=== PATIENT | female | born 1965 | race Caucasian/White ===

== ENCOUNTER 2020-06-28 10:28 | Emergency (ER) | payer OTHER, SELFPAY ==
[2020-06-28 11:11] VITALS: BP 176/84; PULSE 93; RESP 16; O2SAT 98; BMI 27.9
--- NOTE | 2020-06-28 11:24 | ED.BACK ---
HPI - Back Pain/Injury General Chief Complaint: Back Pain/Injury Stated Complaint: r side lower back pain Time Seen by Provider: 06/28/20 11:24 Source: patient Mode of arrival: ambulatory Limitations: no limitations History of Present Illness MD elicited complaint: back pain Pertinent past history: prior back pain Onset (ago): day(s) Timing: intermittent Severity: moderate Similar Symptoms Previously: Yes Quality: aching Location: lumbar spine Radiation: right upper leg Exacerbating factors: movement Relieving factors: immobilization Associated symptoms: denies other symptoms Treatments prior to arrival: cold therapy Work related injury: No Related Data Previous Rx's Medication Instructions Recorded diclofenac potassium 50 mg tablet 50 mg PO BID PRN 30 Days #60 tab 06/05/20 cyclobenzaprine 10 mg tablet 10 mg PO ONCE PRN 90 Days #90 tab 06/09/20 meloxicam 15 mg tablet 15 mg PO DAILY 30 Days #30 tab 06/20/20 clonazepam 1 mg tablet 1 mg PO BID PRN 30 Days #60 tab 06/28/20 lidocaine 1 patch TOPICAL Q24H PRN #10 ea 06/28/20 methylprednisolone [Medrol] 4 mg PO DAILY #10 tab 06/28/20 Allergies Allergy/AdvReac Type Severity Reaction Status Date / Time codeine [CODEINE] Allergy Unknown NAUSEA Unverified 05/18/20 14:51 Review of Systems Review of Systems: Constitutional: No Weight loss, No Fever, No Chills, No Night Sweats, No Fatigue, No Malaise ENT/Mouth: No Hearing loss, No Ear Pain, No Nasal Congestion, No Sinus Pain, No Hoarseness, No sore throat, No Rhinorrhea, No Swallowing Difficulty Eyes: No Eye Pain, No Swelling, No Redness, No Foreign Body, No Discharge, No Vision Changes Cardiovascular: No Chest Pain, No SOB, No Dyspnea on Exertion, No Orthopnea, No Edema, No Palpitations Respiratory: No Cough, No Sputum, No Wheezing, No Smoke Exposure, No Dyspnea Gastrointestinal: No Nausea, No Vomiting, No Diarrhea, No Constipation, No abdominal Pain, No Hematochezia, No Melena Genitourinary: no irregular bleeding, No Dysuria, No Urinary Frequency, No Hematuria, No Urinary Incontinence, No Urgency, No Flank Pain, No Urinary Flow Changes, No Hesitancy Musculoskeletal: No joint pain, No Myalgias, No Joint Swelling Skin: No Skin Lesions, No rash Neuro: No Weakness, No Numbness, No Paresthesias, No Loss of Consciousness, No Dizziness, No Headache Psych: No Anxiety/Panic, No Depression, No SI/HI/AH/VH, No Social Issues Heme/Lymph: No Bruising, No Bleeding,No Lymphadenopathy Endocrine: No Polyuria, No Polydipsia, No Temperature Intolerance Yes all other systems are reviewed and are negative [facility] Past Medical History Attestation statement: The following information was validated with the patient. Medical History (Updated 06/29/20 @ 00:01 by Griselda Hanna) Ankle fracture Anxiety Depression Femur fracture Onychia of toe Radiculopathy Social History Social History Smoking Status: Current every day smoker Use of substances other than those prescribed or required for medical reasons: No Advance Directives: Yes Advance Directives Information Provided: No Advance Directives on File: No Physical Exam Vital Signs: Vital Signs: Vital Signs Pulse Resp BP Pulse Ox 06/28/20 11:11 93 16 176/84 H 98 Body Mass Index 27.9 Reviewed Const: General: cooperative and healthy appearing; No acute distress or intoxicated appearing Nutritional Appearance: average body habitus Orientation/consciousness: patient oriented x3 HENMT: Head: Yes normal to inspection Ears: hearing grossly normal bilaterally Eyes: General: appearance normal, both eyes and all related structures Visual Mott: normal visual mott by confrontation Neck: Neck: Yes normal visual inspection and No tender Thyroid: Thyroid normal Chest: Chest palpation & inspection: normal inspection of the chest Resp: Effort & Inspection: normal respiratory effort Cardio: Jugular venous distension: no JVD GI: Inspection: Yes normal to inspection Percussion: Yes normal to percussion Auscultation: normal bowel sounds : General: Yes no CVA tenderness Back/Spine/Pelvis: Back: no CVA tenderness Back/spine/pelvis image: 1. slight soft tissue to palpation. No rash, erythema, induration. No midline to palpation. No step-off. No obvious deformity. Negative leg lift. Reflexes within normal limits. Skin: General skin exam: no rashes or lesions noted Neuro: General: patient oriented x3 Extrem: General: Yes normal to inspection MDM - Back Pain/Injury MDM Narrative Medical decision making narrative: Feels much better after IM Toradol ambulatory status with gait. No low back pain red flags. X-ray finding show mild lesion disc changes at L5/S1 disc level no visible acute fracture. No dislocation or subluxation. Findings reviewed will follow-up primary care doctor. Differential Diagnosis Differential diagnosis: Likely lumbar radiculopathy, sciatica and strain of lumbar region; Unlikely renal colic, pyelonephritis, thoracic back pain, AAA and discitis Medical Records Attestation: I reviewed the patient's medical records. Lab Data Attestation: I reviewed the patient's lab results. Labs: Lab Results 06/28/20 Range/Units 11:57 Urine Color YELLOW Urine Appearance CLEAR Urine pH 5.5 (5.0-8.0) Ur Specific Gould 1.010 (1.005-1.025) Urine Protein NEG (NEG-TRACE) MG/DL Urine Glucose (UA) 100 H (NEG) MG/DL Urine Ketones NEG (NEG) MG/DL Urine Blood NEG (NEG) Urine Nitrite NEG (NEG) Ur Leukocyte Esterase NEG (NEG) Imaging Data Lumbar spine x-ray: Radiologist's impression: [place] [id number] XRay Report Signed Patient: Shannen Costa [facility]#: [id number] : 1965Acct:[id number] Age/Sex: 54 / FADM Date: 06/28/20 Loc: HO.ED Attending Dr: Ordering Physician: Tyrese Brush NP Date of Service: 06/28/20 Procedure(s): XR lumbar spine 2-3V Accession Number(s): [id number] cc: Tyrese Brush NP~ EXAMINATION: XR LUMBOSACRAL SPINE CLINICAL INFORMATION: Low back pain. COMPARISON: None TECHNIQUE: Three views of the lumbosacral spine. FINDINGS: There is normal lumbar lordosis. The vertebral and alignment is normal. There is loss of L5-S1 disc height. Rest the disc heights are normal. There is no visible acute fracture, dislocation or lytic process. The soft tissues are normal. XR/XR lumbar spine 2-3V IMPRESSION: Mild lesion disc changes L5-S1 disc level. No visible acute fracture, dislocation or subluxation. Dictated By:ARIELLE FRIED MD Signed By:<Electronically signed by ARIELLE FRIED MD in OV>06/28/20 1217 DD/ 1126 TD/TT: Trail Maintenance Worker: TERRENCE Discharge Plan Discharge Clinical Impression: Strain of lumbar region, Sciatica Patient Disposition: Home, Self-Care Prescriptions: New methylprednisolone [Medrol] 4 mg tablet 4 mg PO DAILY Qty: 10 RF: 0 lidocaine 4 % adhesive patch,medicated 1 patch topical Q24H PRN (Reason: pain) Qty: 10 RF: 0 No Action diclofenac potassium 50 mg tablet 50 mg PO BID PRN (Reason: pain) 30 Days Qty: 60 RF: 0 cyclobenzaprine 10 mg tablet 10 mg PO ONCE PRN (Reason: muscle spasm) 90 Days Qty: 90 RF: 0 meloxicam 15 mg tablet 15 mg PO DAILY 30 Days Qty: 30 RF: 0 clonazepam 1 mg tablet 1 mg PO BID PRN (Reason: anxiety) 30 Days Qty: 60 RF: 0 Referrals: Vu Sanchez, ENVIRONMENTAL COMPLIANCE OFFICER-BC [Primary Care Provider] - 1 week Interventions: ED Discharge Assessment Last Done: 06/28/20 12:41 Discharge Date/Time: 06/28/20 12:49
[2020-06-28] MEDS: Ketorolac Tromethamine 30 MG/ML VIAL IM (11:47)
[2020-06-28 12:05] LABS: Glucose Urine UA 100 MG/DL (NEG); Leukocyte Esterase Urine NEG (NEG); Nitrite Urine NEG (NEG); PH 5.5 (5.0-8.0); Urine Blood NEG (NEG); Urine Ketones NEG (NEG); Urine Protein NEG (NEG-TRACE)
[2020-06-28 12:13] LABS: Color Urine YELLOW
[2020-06-28 12:15] LABS: Appearance Urine CLEAR
== END 2020-06-28 12:49 | disposition home or self-care (01) ==
PROVIDERS: Nurse Practitioner Primary Care; Emergency Provider Emergency Medicine; PCP Nurse Practitioner Family
DX: S39.012A Strain of muscle, fascia and tendon of lower back, initial encounter (principal); M54.42 Lumbago with sciatica, left side; M54.41 Lumbago with sciatica, right side; M54.6 Pain in thoracic spine; X58.XXXA Exposure to other specified factors, initial encounter; Y93.9 Activity, unspecified; Y92.9 Unspecified place or not applicable; Y99.9 Unspecified external cause status; F17.200 Nicotine dependence, unspecified, uncomplicated; Z71.6 Tobacco abuse counseling
CPT/HCPCS: 72100; 81003; 96372; 99283; 99284; J1885

== ENCOUNTER 2020-07-12 17:05 | Outpatient (REF) | payer OTHER, SELFPAY ==
--- NOTE | 2020-07-12 | MM_ITS ---
EXAMINATION: MM SCREENING DIGITAL BREAST TOMOSYNTHESIS, BILATERAL CLINICAL INFORMATION: Screening. Asymptomatic. The lifetime risk of breast cancer based on the Tyrer-Cuzick Model is 5%. COMPARISON: Mammography: 10/23/2016 (baseline) TECHNIQUE: Digital breast tomosynthesis is performed in both the craniocaudal and mediolateral oblique views along with computer-aided detection (CAD). Synthesized 2D images are generated from the tomosynthesis. FINDINGS: There are scattered areas of fibroglandular density (ACR BI-RADS breast composition Category b). There are no significant masses, abnormal calcifications, or other abnormalities. Parenchymal pattern is similar to baseline exam. The axilla and skin contours are unremarkable. MM/MM tomosynthesis screening BI IMPRESSION: No mammographic evidence of malignancy. ASSESSMENT: BI-RADS 1: Negative RECOMMENDATION: Routine annual mammography screening. This patient's information was entered into a reminder system with a target due date for their next mammogram.
== END 2020-07-12 17:06 | disposition home or self-care (01) ==
LOC: HO.MAMMO 17:05
PROVIDERS: PCP Nurse Practitioner Family; Visit Provider Nurse Practitioner Family
DX: Z12.31 Encounter for screening mammogram for malignant neoplasm of breast (principal)
CPT/HCPCS: 20610; 77063; 77067; 99212

== ENCOUNTER 2020-07-31 11:39 | Outpatient (REF) | payer OTHER, SELFPAY | END 2020-07-31 11:40 | disposition home or self-care (01) | LOC: HO.LAB 11:39 | PROVIDERS: Visit Provider Internal Medicine | DX: Z20.828 Contact with and (suspected) exposure to other viral communicable diseases (principal) | CPT/HCPCS: C9803; U0003 ==

== ENCOUNTER 2020-09-15 09:55 | Outpatient (REF) | payer OTHER, SELFPAY ==
--- NOTE | 2020-09-15 10:02 | XR_ITS ---
EXAMINATION: XR BILATERAL KNEES STANDING XR BILATERAL KNEES CLINICAL INFORMATION: Patellofemoral disorder. Pain. COMPARISON: None TECHNIQUE: AP bilateral knees standing. 2 views each knee. FINDINGS: AP BILATERAL KNEES: There is reduction in the medial and lateral compartment joint spaces of both knees with mild lateral patellar right knee spurring. No loose bodies seen. There is a small radiopaque density seen along the lateral femoral cortex right knee. LEFT KNEE: There is no visible fracture, dislocation. The patellofemoral compartment joint spaces maintained. There are no loose bodies. RIGHT KNEE: There is moderate suprapatellar joint effusion with a small anterosuperior patellar enthesophyte. No loose bodies seen. No bony erosive changes. XR/XR knee RT 2V IMPRESSION: Bilateral mild degenerative changes medial and lateral compartments both knees. There is mild to moderate right knee suprapatellar joint effusion but no loose bodies seen. Lateral view left knee is unremarkable.
--- NOTE | 2020-09-15 10:02 | XR_ITS ---
EXAMINATION: XR BILATERAL KNEES STANDING XR BILATERAL KNEES CLINICAL INFORMATION: Patellofemoral disorder. Pain. COMPARISON: None TECHNIQUE: AP bilateral knees standing. 2 views each knee. FINDINGS: AP BILATERAL KNEES: There is reduction in the medial and lateral compartment joint spaces of both knees with mild lateral patellar right knee spurring. No loose bodies seen. There is a small radiopaque density seen along the lateral femoral cortex right knee. LEFT KNEE: There is no visible fracture, dislocation. The patellofemoral compartment joint spaces maintained. There are no loose bodies. RIGHT KNEE: There is moderate suprapatellar joint effusion with a small anterosuperior patellar enthesophyte. No loose bodies seen. No bony erosive changes. XR/XR knee LT 2V IMPRESSION: Bilateral mild degenerative changes medial and lateral compartments both knees. There is mild to moderate right knee suprapatellar joint effusion but no loose bodies seen. Lateral view left knee is unremarkable.
--- NOTE | 2020-09-15 10:02 | XR_ITS ---
EXAMINATION: XR BILATERAL KNEES STANDING XR BILATERAL KNEES CLINICAL INFORMATION: Patellofemoral disorder. Pain. COMPARISON: None TECHNIQUE: AP bilateral knees standing. 2 views each knee. FINDINGS: AP BILATERAL KNEES: There is reduction in the medial and lateral compartment joint spaces of both knees with mild lateral patellar right knee spurring. No loose bodies seen. There is a small radiopaque density seen along the lateral femoral cortex right knee. LEFT KNEE: There is no visible fracture, dislocation. The patellofemoral compartment joint spaces maintained. There are no loose bodies. RIGHT KNEE: There is moderate suprapatellar joint effusion with a small anterosuperior patellar enthesophyte. No loose bodies seen. No bony erosive changes. XR/XR knee standing BI IMPRESSION: Bilateral mild degenerative changes medial and lateral compartments both knees. There is mild to moderate right knee suprapatellar joint effusion but no loose bodies seen. Lateral view left knee is unremarkable.
== END 2020-09-15 09:56 | disposition home or self-care (01) ==
LOC: HO.XRAY 09:55
PROVIDERS: PCP Nurse Practitioner Family; Visit Provider Physician Assistant
DX: M22.2X9 Patellofemoral disorders, unspecified knee (principal); M25.569 Pain in unspecified knee; M25.461 Effusion, right knee
CPT/HCPCS: 20610; 73560; 73565; 99212

== ENCOUNTER 2020-09-15 11:40 | Outpatient (REF) | payer OTHER, SELFPAY | END 2020-09-15 11:41 | disposition home or self-care (01) | LOC: HO.LAB 11:40 | PROVIDERS: Visit Provider Physician Assistant | DX: M25.461 Effusion, right knee (principal) | CPT/HCPCS: 87071; 87073; 87205; 89060; J1040 ==

== ENCOUNTER 2021-04-20 11:06 | Day surgery (SDC) | payer OTHER, SELFPAY ==
[2021-04-12 14:43] VITALS: BMI 27.1
--- NOTE | 2021-04-19 09:20 | HO.ANESPROP2 ---
Documented by User: Nata Cm NP 04/19/21 09:21 HPI - Anesthesia Eval Consult details Narrative: 55yo F for Upper Endoscopy and Colonoscopy [facility] Active Problems Active Problems: All Active Problems (Updated 11/20/20 @ 11:47 by KYUNG Mccarthy) Effusion, right knee (Acute) HTN (hypertension) (Acute) Hand dermatitis (Acute) Xanthelasma (Acute) Puncture wound, hand (Acute) Depression (Acute) Anxiety (Acute) Patella-femoral syndrome (Acute) Radiculopathy (Acute) Past Medical History Medical History Ankle fracture Anxiety Depression Femur fracture Onychia of toe Radiculopathy Surgical History Surgical History History of ankle surgery Social History Social History Patient Tobacco Use Status: Current everyday Tobacco user Cigarette Packs Per Day: 1 Cigarettes Per Day: 10 Use of substances other than those prescribed or required for medical reasons: No Are you DNR?: No Advance Directives: No Advance Directives Information Provided: No Advance Directives on File: No 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 Allergies Allergy/AdvReac Type Severity Reaction Status Date / Time codeine [CODEINE] Allergy Unknown NAUSEA Verified 11/20/20 11:45 Exam Exam Date and Time: April 19, 2021 0920 Height,Weight and Vital Signs: Height 5 ft 4 in Weight 71.668 kg Assessment and Plan Assessment Anesthesia Assessment: Chart Reviewed Documented by User: Brianne Fishman MD 04/20/21 12:42 [facility] Past Medical History Medical History Ankle fracture Anxiety Depression Femur fracture Onychia of toe Radiculopathy Family History Family history of problems with anesthesia: No Surgical History Surgical History History of ankle surgery History of Problems with Anesthesia: No Social History Social History Patient Tobacco Use Status: Current everyday Tobacco user Cigarette Packs Per Day: 1 Cigarettes Per Day: 10 Use of substances other than those prescribed or required for medical reasons: No Are you DNR?: No Advance Directives: No Advance Directives Information Provided: No Advance Directives on File: No 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 Allergies Allergy/AdvReac Type Severity Reaction Status Date / Time codeine [CODEINE] Allergy Unknown NAUSEA Verified 11/20/20 11:45 Exam Airway Mallampati Class: II TM Dist: >3cm Neck ROM: Full Heart: rrr Lungs: cta Assessment and Plan Assessment Anesthesia Assessment: Anesthesia Plan Discussed and Chart Reviewed Final Anesthetic Review Family History of Problems with Anesthesia: No History of Problems with Anesthesia: No NPO: Yes ASA Class: II Final Preanesthetic Review: No Changes in Pt Med Stat and Consent Obtained/Reviewed Patient Risk: Intermediate Procedure Risk: Intermediate Anesthetic Plan Anesthetic Plan: MAC: Disposition: Standard PACU
[2021-04-20 11:37] VITALS: BP 142/83; PULSE 88; RESP 16; TEMP 36.4; O2SAT 96
[2021-04-20] MEDS: Lactated Ringers 1,000 ML 100 ML IVCONT (11:42)
[2021-04-20 14:02] VITALS: BP 133/70; PULSE 71; RESP 16; TEMP 36.1; O2SAT 97
[2021-04-20] MEDS: ondansetron HCL 4 MG/2 ML VIAL IVPUSH (14:07)
--- NOTE | 2021-04-20 14:09 | PM.OP ---
Brief Operative Note Date of Service: 04/20/21 Pre-op diagnosis: Manzo's esophagus, Rectal bleeding Post-op diagnosis: other (Hiatal hernia, R/O gastric polyp, diverticulosis) Procedure: EGD with biopsies, Colonoscopy to the cecum Surgeon: Yash Jefferson Anesthesia: MAC Was an Instrumentation Engineer used for this Procedure?: No Estimated blood loss (mL): 3.0 Pathology: other (A. EG Junction at 35cm B. Gastric body) Condition: stable Disposition: PACU
[2021-04-20 14:17] VITALS: PULSE 65; RESP 18
[2021-04-20 14:33] VITALS: BP 142/67; PULSE 72; RESP 18; O2SAT 98
--- NOTE | 2021-04-20 23:21 | OP_ITS ---
SURGEON: Yash Jefferson MD INDICATIONS: The patient presents for evaluation of gastroesophageal reflux, Manzo esophagus, and hematochezia. Full consent has been obtained from her for both procedures, including risks of bleeding and perforation. PREOPERATIVE DIAGNOSIS: Manzo esophagus and hematochezia. POSTOPERATIVE DIAGNOSIS: Manzo esophagus and hematochezia, hiatal hernia. Rule out gastric polyp, diverticulosis, and internal hemorrhoids. PROCEDURE PERFORMED: Esophagogastroduodenoscopy with biopsies and colonoscopy to the cecum. ESTIMATED BLOOD LOSS: COMPLICATIONS: ANESTHESIA: Preop medication used, monitored anesthesia care. ASSISTANTS: SPECIMENS: DESCRIPTION OF PROCEDURE: The patient was placed in the left lateral decubitus position. An Olympus video gastroscope was passed in the posterior oropharynx and upper esophagus under direct vision. The scope was passed slowly into the distal esophagus. The gastroesophageal junction appeared at 35 cm. This area was notable for some slight irregularity and some changes consistent with Manzo mucosa. There was no evidence of any esophagitis nor any lesions. The scope entered into the stomach. There was a [id number]-[id number]-sized hiatal hernia. The scope was advanced to the pylorus and the duodenum was cannulated to the descending portion. The duodenum including the bulb appeared normal without mass or ulceration. The scope was withdrawn back to the stomach, the gastric antrum appeared normal. The scope was retroflexed visualizing the proximal stomach carefully, which appeared normal, without any sign of mass or ulceration. The scope was straightened. Along the greater curvature in the body of the stomach was a whitish area approximately 5 x 12 mm in diameter, which was different than the surrounding mucosa. Multiple biopsies were obtained from it. The remainder of the stomach appeared normal. The scope was withdrawn back to the esophagus. I obtained multiple biopsies at 35 cm in the area of probable Manzo mucosa. Proximal to that, the esophageal mucosa appeared normal. The scope was withdrawn from the patient. She was turned around for the colonoscopy. The digital rectal exam revealed no abnormalities. An Olympus video pediatric colonoscope was entered into the rectum and advanced easily to the cecum. Once in the cecum, I did identify normal-appearing cecal pouch with appendiceal orifice and a normal-appearing ileocecal valve. There was transillumination of light deep in the right lower quadrant. The entire cecum and the ileocecal valve appeared normal. Scope was slowly withdrawn assessing all mucosal surfaces carefully. Preparation was excellent. I did not visualize any sign of polyps, colitis, nor angiodysplasia. There was a moderate amount of sigmoid diverticulosis. In the rectum, scope was retroflexed visualizing internal hemorrhoids, but no other pathology. The rectal mucosa appeared normal. The scope was straightened out and withdrawn from the patient. She tolerated both procedures well and was returned to the recovery area in stable condition. IMPRESSION: 1. Hiatal hernia, history of Manzo esophagus. 2. Rule out gastric polyp. 3. Diverticulosis. 4. Internal hemorrhoids. PLAN: The results of biopsies will be checked. If there is no dysplasia in the Manzo esophagus, I would recommend a repeat upper endoscopy in 3 years. Given today's negative colonoscopy and a negative colonoscopy in 2018 and no family history of first-degree relatives with colon cancer, I would recommend a repeat colonoscopy in 10 years. She will otherwise see me on a p.r.n. basis. MD VALENTE Kirk/URSZULA / [phone]
== END 2021-04-20 15:12 | disposition home or self-care (01) ==
PROVIDERS: PCP Nurse Practitioner Family; Visit Provider Internal Medicine
PROC: (CPT 45378; principal; 2021-04-20 12:30)
DX: K62.5 Hemorrhage of anus and rectum (principal); K57.30 Diverticulosis of large intestine without perforation or abscess without bleeding; K64.8 Other hemorrhoids; K21.9 Gastro-esophageal reflux disease without esophagitis; K22.70 Barrett's esophagus without dysplasia; K44.9 Diaphragmatic hernia without obstruction or gangrene; I10 Essential (primary) hypertension; Z79.899 Other long term (current) drug therapy; F17.210 Nicotine dependence, cigarettes, uncomplicated
CPT/HCPCS: 45378; 43239; 88305; 88342; J2405

== ENCOUNTER 2021-07-17 13:34 | Outpatient (REF) | payer OTHER, SELFPAY ==
--- NOTE | ~2021-07-17 | XR_ITS ---
EXAMINATION: XR SHOULDER, RIGHT CLINICAL INFORMATION: Pain COMPARISON: None TECHNIQUE: Three views of the right shoulder. FINDINGS: Bone alignment is normal. No fracture or dislocation is seen. The glenohumeral joint is normal. There is arthritis at the acromioclavicular joint. Soft tissues are normal. XR/XR shoulder RT min 2V IMPRESSION: Arthritis at the acromioclavicular joint.
--- NOTE | ~2021-07-17 | XR_ITS ---
EXAMINATION: XR CHEST CLINICAL INFORMATION: R05.9 - Cough, unspecified COMPARISON: Chest radiographs 11/19/2019, 04/20/2019 TECHNIQUE: 2 views of the chest were obtained. FINDINGS: There is subtle airspace opacity right suprahilar region may be related to early pneumonia. There is coarsening of the bronchiolar markings. There is questionable groundglass opacity right infrahilar region. The costophrenic sulci are clear. The vascularity is normal. The heart is normal in size. The hilar contours are normal. No acute bony abnormality. XR/XR chest 2V IMPRESSION: Subtle airspace opacity right suprahilar region with mild bilateral bronchiolar wall thickening. Questionable groundglass opacity right infrahilar region. No effusion.
== END 2021-07-17 13:35 | disposition home or self-care (01) ==
LOC: HO.HMGCX 13:34
PROVIDERS: PCP Nurse Practitioner Family; Visit Provider Internal Medicine
DX: R05.9 Cough, unspecified (principal); M25.511 Pain in right shoulder
CPT/HCPCS: 71046; 73030

== ENCOUNTER 2021-08-10 13:28 | Outpatient (REF) | payer OTHER, SELFPAY ==
--- NOTE | ~2021-08-10 | CT_ITS ---
EXAMINATION: CT CHEST SCREENING CLINICAL INFORMATION: Nicotine dependence. COMPARISON: Chest 07/17/2021. TECHNIQUE: Multidetector volumetric CT imaging of the chest is performed without contrast using low dose technique. Additional 2D coronal and sagittal reformatted images and axial 3D maximum intensity projection (MIP) images are generated on the CT workstation. This CT examination was performed using dose optimization techniques as appropriate, variously including the following: *Automated exposure control *Adjustment of mA and/or kV according to patient size (this includes techniques or standardized protocols for targeted exams where dose is matched to indication/reason for exam; i.e. extremities or head) *Use of iterative reconstruction technique DLP: 237 mGy-cm FINDINGS: LUNGS: There is centrilobular emphysema with 1 cm ground-glass attenuation right upper lobe adjacent to major fissure. In addition, there is scattered ground-glass attenuation seen in both lungs. There is subpleural linear densities in both upper lobes, lingula and patchy ill-defined ground-glass attenuation in upper and lower lobes. There is no bronchiectasis or peribronchial wall thickening. Groundglass attenuation No acute consolidation seen. MEDIASTINUM: The thyroid lobes are symmetrical and normal. The central trachea and the bronchi are widely patent. No abnormal mediastinal lymph nodes or masses seen. Heart size and the great vessels are normal caliber. There are small shotty lymph nodes in the pretracheal, para-aortic and subcarinal space with a short axis measurement of 7 mm and less in pretracheal space. PLEURA: There is no pleural effusion. No pleural mass or thickening. AXILLA: No lymphadenopathy. UPPER ABDOMEN: Visualized liver, spleen, pancreas and adrenal glands are unremarkable. OSSEOUS STRUCTURES: No lytic or sclerotic process seen. There is mild ventral spondylosis upper dorsal spine. CT/CT lung screening IMPRESSION: Emphysema with scattered linear atelectasis and ill-defined scattered ground-glass attenuation in both upper lobes and lingula and dependent ground-glass attenuation in both lower lobes, likely atelectasis. Measurable ground-glass attenuation in the right upper lobe is 1 cm. These above findings are suggestive of chronic lung parenchymal changes. No definite lymph nodes seen. ASSESSMENT: Lung-RADS category 2: Benign. RECOMMENDATION: Low-dose annual CT chest.
== END 2021-08-10 13:29 | disposition home or self-care (01) ==
LOC: HO.CT 13:28
PROVIDERS: PCP Nurse Practitioner Family; Visit Provider Physician Assistant Medical
DX: Z12.2 Encounter for screening for malignant neoplasm of respiratory organs (principal); F17.210 Nicotine dependence, cigarettes, uncomplicated
CPT/HCPCS: 71271; G0296

== ENCOUNTER 2021-08-27 11:09 | Outpatient (REF) | payer OTHER, SELFPAY | END 2021-08-27 11:10 | disposition home or self-care (01) | LOC: HO.HMGCLDS 11:09 | PROVIDERS: Visit Provider Internal Medicine | DX: Z20.822 Contact with and (suspected) exposure to COVID-19 (principal) | CPT/HCPCS: C9803; U0003; U0005 ==

== ENCOUNTER 2021-09-04 09:37 | Outpatient (REF) | payer OTHER, SELFPAY ==
[2021-09-04 11:33] LABS: Basophils Absolute Auto 0.1 X10*3/uL (0.0-0.2); Eosinophils Absolute Auto 0.1 X10*3/uL (0.0-0.4); Eosinophils Percent Auto 0.8 % (0-4); Hematocrit 41.7 % (37.0-47.0); Hemoglobin 14.1 g/dl (12.0-16.0); Imm Gran Abs Auto 0.06 X10*3/uL (0.00-0.03); Imm Gran Pct Auto 0.6 % (0.0-0.4); Lymphocytes Percent Auto 18.8 % (20-40); MANUAL DIFF FLAG NO; Mean Corpuscular HGB Conc 33.8 g/dl (31.0-35.0); Mean Corpuscular Hemoglobin 29.1 pg (27.0-33.0); Mean Corpuscular Volume 86.2 fL (80.0-98.0); Mean Platelet Volume 10.3 fL (9.4-12.3); Monocytes Absolute Auto 0.8 X10*3/uL (0.1-1.2); Monocytes Percent Auto 7.4 % (2-11); Neutrophils Absolute Auto 7.6 x10*3/uL (2.0-8.3); Neutrophils Percent Auto 71.4 % (45-73); Platelet Count 318 X10*3/uL (160-400); Red Blood Count 4.84 X10*6/uL (4.20-5.50); Red Cell Distribution Width 14.5 % (11.0-16.0); White Blood Count 10.6 X10*3/uL (4.8-10.8)
[2021-09-04 11:44] LABS: INTERNATIONAL NORM RATIO 0.9 (0.9-1.1)
[2021-09-04 11:47] LABS: Partial Thromboplastin Time 34.1 SEC (24.1-38.0)
[2021-09-04 12:02] LABS: Alanine Aminotransferase 47 U/L (0-31); Albumin Level 4.4 g/dL (3.5-5.0); Alkaline Phosphatase 114 U/L (39-117); Anion Gap 13 (12-20); Aspartate Amino Transferase 24 U/L (5-31); Bilirubin Total 0.3 mg/dL (0.0-1.0); Blood Urea Nitrogen 21 mg/dL (9-16); Calcium 9.8 mg/dL (8.4-10.2); Carbon Dioxide 27 mmol/L (22-29); Chloride 102 mmol/L (96-108); Cholesterol 364 mg/dL; Estimated Glomerular Filt Rate > 60; Glucose Fasting 179 mg/dL (60-99); HDL Cholesterol 42 mg/dL; Potassium 4.9 mmol/L (3.3-5.1); Sodium 137 mmol/L (135-145); Total Protein 7.1 g/dL (6.5-8.0); Triglycerides 436 mg/dL; Uric Acid 5.4 mg/dL (2.4-5.7)
[2021-09-04 12:06] LABS: Appearance Urine CLEAR; Color Urine YELLOW; Glucose Urine UA NEG (NEG); Leukocyte Esterase Urine NEG (NEG); Nitrite Urine NEG (NEG); Urine Blood NEG (NEG); Urine Ketones NEG (NEG); Urine Protein NEG (NEG-TRACE)
[2021-09-04 12:26] LABS: TSH reflex Free T4 0.46 uIU/mL (0.32-4.0); ~Hepatitis B Surface Antibody NONREACTIVE (Nonreactive)
[2021-09-04 12:29] LABS: HBsAGNum1 0.27 S/CO (0.00-0.99); Hepatitis B Core Antibody Nonreactive (Nonreactive); Hepatitis B Surface Antigen Negative (Negative); ~HepC Num1 0.08 S/CO (0.00-0.79); ~Hepatitis C Antibody Nonreactive (Nonreactive)
[2021-09-05 04:22] LABS: Hepatitis A Antibody IgM 0.17 Index (0-0.79); ~Hepatitis A Antibody IgM Nonreactive (Nonreactive)
== END 2021-09-04 09:38 | disposition home or self-care (01) ==
LOC: HO.HMGCLDS 09:37
PROVIDERS: PCP Nurse Practitioner Family; Visit Provider Nurse Practitioner Family
DX: Z00.00 Encounter for general adult medical examination without abnormal findings (principal); F41.9 Anxiety disorder, unspecified; H02.60 Xanthelasma of unspecified eye, unspecified eyelid; M79.675 Pain in left toe(s); Z28.3 Underimmunization status
CPT/HCPCS: 36415; 80053; 80061; 81003; 84443; 84550; 85025; 85610; 85730; 86704; 86706; 86709; 86803; 87340

== ENCOUNTER 2021-11-06 11:02 | Outpatient (REF) | payer OTHER, SELFPAY ==
--- NOTE | ~2021-11-06 | MM_ITS ---
EXAMINATION: MM SCREENING DIGITAL BREAST TOMOSYNTHESIS, BILATERAL CLINICAL INFORMATION: Screening. Asymptomatic. The lifetime risk of breast cancer based on the Tyrer-Cuzick Model is 8%. COMPARISON: Mammography: 07/12/2020, 10/23/2016 TECHNIQUE: Digital breast tomosynthesis is performed in both the craniocaudal and mediolateral oblique views along with computer-aided detection (CAD). Synthesized 2D images are generated from the tomosynthesis. FINDINGS: There are scattered areas of fibroglandular density (ACR BI-RADS breast composition Category b). Parenchymal pattern is similar to prior studies. There is no developing density or architectural abnormality. The axilla and skin contours are unremarkable. No significant changes. MM/MM tomosynthesis screening BI IMPRESSION: No mammographic evidence of malignancy. ASSESSMENT: BI-RADS 1: Negative RECOMMENDATION: Routine annual mammography screening. This patient's information was entered into a reminder system with a target due date for their next mammogram.
== END 2021-11-06 11:03 | disposition home or self-care (01) ==
LOC: HO.MAMMO 11:02
PROVIDERS: PCP Nurse Practitioner Family; Visit Provider Nurse Practitioner Family
DX: Z12.31 Encounter for screening mammogram for malignant neoplasm of breast (principal)
CPT/HCPCS: 77063; 77067

== ENCOUNTER → 2021-11-20 13:36 | Outpatient (BNVA) | payer OTHER, SELFPAY | PROVIDERS: PCP Nurse Practitioner Family; Visit Provider Hospitalist | DX: J18.9 Pneumonia, unspecified organism (principal); R05.9 Cough, unspecified; F17.210 Nicotine dependence, cigarettes, uncomplicated; R91.8 Other nonspecific abnormal finding of lung field | CPT/HCPCS: 99202 ==

== ENCOUNTER 2022-07-09 11:00 | Outpatient (RCR) | payer OTHER, SELFPAY ==
--- NOTE | 2022-07-05 08:57 | MHC.PT.EP ---
[place] Office [place] Office [place] Office [address] Dianna Higgins [address] [phone] F: [phone] F: [phone] F: [phone] F: [phone] Physical Therapy Plan of Care Date of Evaluation: Date of Surgery: Diagnosis: LBP, pain in leg. Assessment: Pt is a 56 y/o female referred to PT for eval and treat of LBP with pain in leg who presents with lumbopelvic and R LE dysfunction resulting in decreased tolerance for standing walking and sitting for duration, as well as squatting activities, and disturbed sleep secondary to decreased R > l hip strength, painful ROM of R hip, TTP of R lateral hip, decreased core strength, pelvic asymmetry, abnormal gait. Pt is deemed an appropriate candidate to receive skilled PT services to address their physical impairments in order to improve her functional ability. Frequency and Duration: The patient will be seen 2 x/ wk x 5 wks. Short Term Goals: Initiate HEP. Improve TTP of R lateral hip from 3+ (considerable) to at most 1+ (mild). Snf Goals: I with HEP. Pt will report at most 1/4 disturbed sleep d/t LBP/ hip pain; initial: 3/4 disturbed. Pt will be able to stand > 30 min with managed Sx; initial: Pt avoids standing at all because it increases her pain immediately. Improve R hip abd MMT by at least 1/2 MMT grade. Treatment Plan: Modalities to reduce pain, spasms and effusion. Manual therapy to restore motion and function. Therapeutic exercise to improve strength and flexibility. Neuromuscular re-education for posture and balance. Therapeutic activities to return to functional activities of daily living. Electronically signed by: Sami Hurtado PT. Please sign and return to therapist. Thank you for your referral.
--- NOTE | 2022-09-24 14:39 | MHC.PT.DC ---
[facility] [place] Office [place] Office [place] Office [address] Cindi Higgins [address] [phone] F: [phone] F: [phone] F: [phone] F: [phone] Physical Therapy Discharge Report Diagnosis: LBP, pain in leg. Date of Surgery: Date of Evaluation: 07/02/22 Date of Discharge: 09/24/22 Treatments to Date: 3 Cancellations to Date: 1 No Shows to Date: Discharge Status: Patient Elected to Stop Discharge Summary: Continued with Ionto Dex to R Gr trochanter as Pt reported several hours of relief. Good jordan for gentle exercises. no adverse effects. Progress HEP NV. Pt is concerned she is supposed to RTW next week and is asking for a note; she was instructed to f/u with her MD office and educated that PT does not make this determination. Electronically signed by: Sami Hurtado PT. Please sign and return to therapist. Thank you for your referral.
== END 2022-09-24 14:37 | disposition home or self-care (01) ==
LOC: HO.PTCHIC 11:00
PROVIDERS: PCP Nurse Practitioner Family; Visit Provider Nurse Practitioner Family
DX: M54.50 Low back pain, unspecified (principal); M79.606 Pain in leg, unspecified
CPT/HCPCS: 97033; 97110; 97161

== ENCOUNTER 2022-07-16 11:57 | Outpatient (REF) | payer OTHER, SELFPAY ==
[2022-07-17 12:56] LABS: Influenza A PCR NEGATIVE (Negative); Influenza B PCR NEGATIVE (Negative); Resp Syncy Virus RNA Qual PCR NEGATIVE (Negative); SARS COV2 PCR INHOUSE NEGATIVE (Negative)
== END 2022-07-16 11:58 | disposition home or self-care (01) ==
LOC: HO.LAB 11:57
PROVIDERS: Visit Provider Hospitalist
DX: Z00.00 Encounter for general adult medical examination without abnormal findings (principal); B37.31 Acute candidiasis of vulva and vagina; R81 Glycosuria; N89.8 Other specified noninflammatory disorders of vagina; Z20.822 Contact with and (suspected) exposure to COVID-19
CPT/HCPCS: 0241U; 87086; 87088; 87186

== ENCOUNTER 2022-09-12 10:24 | Outpatient (REF) | payer OTHER, SELFPAY ==
--- NOTE | ~2022-09-12 | MR_ITS ---
EXAMINATION: MR LUMBAR SPINE WITHOUT CONTRAST CLINICAL INFORMATION: 57-year-old with self-reported constant low back pain and tailbone pain. Radiculopathy, site unspecified. COMPARISON: 06/28/2020 x-rays. TECHNIQUE: MRI of the lumbar spine was obtained using routine sequences without contrast. FINDINGS: Coronal Alignment: Slight lower lumbar levocurvature noted. Sagittal Alignment: 3.5 mm of grade 1 degenerative spondylolisthesis noted at L4-L5. No spondylolysis. Lordotic curvature is maintained. Lumbosacral Junction: Normal. There appear to be 6 lumbar-like vertebral bodies, with the highest of these being considered T12 with hypoplastic ribs. These findings are consistent with vertebral numeric variation, which is developmental. Vertebral Bodies: Stable vertebral body heights. No interval compression fractures. Disc Spaces and Endplates: Moderate to severe intervertebral disc space height loss at L5-S1, with disc desiccation, Schmorl's nodes and spondylosis with probable intradiscal vacuum disc phenomenon. There is disc desiccation at L4-L5 without significant disc space height loss. Remaining lumbar intervertebral discs demonstrate normal height and signal. There is minor anterior marginal endplate spurring at T12-L1. Spinal Canal: There is epidural lipomatosis predominantly in the lower lumbar canal with a constricted appearance to the dural sac at the L4-L5 and L5-S1 levels. Bone Marrow: There is bone marrow edema in the L4 and L5 pedicles on the left, which are nonspecific findings but could reflect stress reactions. Mild marrow edema also noted in the right L5 pedicle. Type II degenerative marrow signal changes noted along the endplates at L5-S1. No suspicious marrow replacing process. Conus Medullaris: Terminates at T12-L1. Morphology and signal is normal. Intradural Nerve Roots: Crowding of the intradural nerve roots at L4-L5 and L5-S1 likely reflecting epidural lipomatosis with a constricted appearance of the dural sac at these levels. Otherwise within normal limits. L5-S1: Diffuse disc bulging is noted which is slightly impinges on the traversing left S1 nerve root and contacts the right S1 nerve root. See above for discussion of the thecal sac at this level. There is minor facet arthropathy noted, right more than left with mild foraminal narrowing on the right without neural impingement. L4-L5: Slight unroofing of the posterior disc margin noted consistent with grade 1 degenerative spondylolisthesis, with a superimposed right-sided inferior foraminal disc protrusion without neural impingement. Severe bilateral facet arthropathy is noted with ligamentum flavum thickening and a prominent dorsal epidural fat pad with severe central spinal canal stenosis and crowding of the intradural nerve roots. There is severe bilateral subarticular recess stenosis, encroaching on the traversing L5 nerve roots bilaterally. There is mild foraminal narrowing bilaterally without exiting neural impingement. L3-L4: Normal disc contours. [id number] bilateral facet arthropathy noted without significant canal or neuroforaminal stenosis. L2-L3: Normal disc contours. Mild facet arthrosis noted on the right without significant canal or neural foraminal stenosis. L1-L2: Normal disc contours. No facet arthrosis, canal or neuroforaminal stenosis. T12-L1: Normal disc contours. No facet arthrosis, canal or neuroforaminal stenosis. Paraspinal/Retroperitoneal: The paravertebral soft tissues appear unremarkable. MR/MR lumbar spine wo con IMPRESSION: 1. Grade 1 degenerative spondylolisthesis at L4-L5 with severe bilateral facet arthropathy at this level and disc degenerative change with pseudodisc bulging and right lateral disc protrusion without neural impingement. There is severe spinal canal stenosis at this level with crowding of the intradural nerve roots and probable impingement on the traversing L5 nerve roots bilaterally. Mild foraminal narrowing noted bilaterally without exiting neural impingement. 2. Disc bulging and disc degenerative change at L5-S1 with disc bulging encroaching on the traversing S1 nerve roots, left more than right, with mild right-sided foraminal narrowing without neural impingement. 3. Marrow edema in the L4 and L5 pedicles on the left, which may reflect stress reactions. 4. Epidural lipomatosis in the lower lumbar canal with a constricted appearance to the dural sac at L4-L5 and L5-S1.
== END 2022-09-12 10:25 | disposition home or self-care (01) ==
LOC: HO.MRI 10:24
PROVIDERS: PCP Nurse Practitioner Family; Visit Provider Nurse Practitioner Family
DX: M54.50 Low back pain, unspecified (principal); M54.10 Radiculopathy, site unspecified
CPT/HCPCS: 72148

== ENCOUNTER → 2022-10-31 11:42 | Outpatient (BNVA) | payer OTHER, SELFPAY | PROVIDERS: PCP Nurse Practitioner Family; Visit Provider Obstetrics & Gynecology | DX: Z13.89 Encounter for screening for other disorder (principal) ==

== ENCOUNTER 2022-12-19 10:14 | Outpatient (REF) | payer OTHER, SELFPAY ==
--- NOTE | ~2022-12-19 | CT_ITS ---
EXAMINATION: CT CHEST SCREENING CLINICAL INFORMATION: Former smoker. Quit 1 year ago. 40 pack year history. COMPARISON: Previous chest CT from 2020 TECHNIQUE: Multidetector volumetric CT imaging of the chest is performed without contrast using low dose technique. Additional 2D coronal and sagittal reformatted images and axial 3D maximum intensity projection (MIP) images are generated on the CT workstation. This CT examination was performed using dose optimization techniques as appropriate, variously including the following: *Automated exposure control *Adjustment of mA and/or kV according to patient size (this includes techniques or standardized protocols for targeted exams where dose is matched to indication/reason for exam; i.e. extremities or head) *Use of iterative reconstruction technique DLP: 46 mGy-cm FINDINGS: LUNGS: There is emphysema. No pulmonary nodule. No endobronchial or endotracheal lesion. MEDIASTINUM: The mediastinum is normal. CORONARY ARTERY CALCIFICATION: Mild PLEURA: There is no pleural effusion. No pleural mass or thickening. AXILLA: No lymphadenopathy. UPPER ABDOMEN: Question mild diffuse wall thickening of the stomach versus changes due to underdistention. OSSEOUS STRUCTURES: Degenerative changes of the spine. CT/CT lung screening IMPRESSION: Emphysema. No pulmonary nodule. ASSESSMENT: Lung-RADS category 1: Negative RECOMMENDATION: Routine annual low-dose CT screening in 12 months.
== END 2022-12-19 10:15 | disposition home or self-care (01) ==
LOC: HO.CT 10:14
PROVIDERS: PCP Nurse Practitioner Family; Visit Provider Physician Assistant Medical
DX: Z12.2 Encounter for screening for malignant neoplasm of respiratory organs (principal); F17.210 Nicotine dependence, cigarettes, uncomplicated
CPT/HCPCS: 71271

== ENCOUNTER 2022-12-19 11:07 | Outpatient (REF) | payer OTHER, SELFPAY ==
[2022-12-19 14:11] LABS: MANUAL DIFF FLAG NO
[2022-12-19 14:14] LABS: Appearance Urine Clear; Color Urine Yellow; Glucose Urine UA 100 mg/dL (Negative); Leukocyte Esterase Urine Negative (Negative); Nitrite Urine Negative (Negative); Urine Blood Negative (Negative); Urine Ketones Negative (Negative); Urine Protein Negative (Neg-Trace)
[2022-12-19 14:17] LABS: Basophils Absolute Auto 0.1 X10*3/uL (0.0-0.2); Eosinophils Percent Auto 0.1 % (0-4); Hematocrit 40.1 % (37.0-47.0); Hemoglobin 13.4 g/dl (12.0-16.0); Imm Gran Abs Auto 0.02 X10*3/uL (0.00-0.03); Imm Gran Pct Auto 0.3 % (0.0-0.4); Lymphocytes Absolute Auto 2.6 X10*3/uL (1.2-4.9); Lymphocytes Percent Auto 35.3 % (20-40); Mean Corpuscular HGB Conc 33.4 g/dl (31.0-35.0); Mean Corpuscular Hemoglobin 28.6 pg (27.0-33.0); Mean Corpuscular Volume 85.7 fL (80.0-98.0); Mean Platelet Volume 10.2 fL (9.4-12.3); Monocytes Absolute Auto 0.5 X10*3/uL (0.1-1.2); Neutrophils Absolute Auto 4.1 x10*3/uL (2.0-8.3); Neutrophils Percent Auto 56.3 % (45-73); Platelet Count 299 X10*3/uL (160-400); Red Blood Count 4.68 X10*6/uL (4.20-5.50); Red Cell Distribution Width 13.5 % (11.0-16.0); White Blood Count 7.3 X10*3/uL (4.8-10.8)
[2022-12-19 14:47] LABS: Alanine Aminotransferase 11 U/L (0-31); Albumin Level 4.4 g/dL (3.5-5.0); Alkaline Phosphatase 117 U/L (39-117); Anion Gap 16 (12-20); Aspartate Amino Transferase 12 U/L (5-31); Bilirubin Total 0.5 mg/dL (0.0-1.0); Blood Urea Nitrogen 15 mg/dL (9-16); Calcium 9.5 mg/dL (8.4-10.2); Carbon Dioxide 26 mmol/L (22-29); Chloride 101 mmol/L (96-108); Cholesterol 177 mg/dL; Estimated Glomerular Filt Rate > 60; Glucose Fasting 119 mg/dL (60-99); HDL Cholesterol 37 mg/dL; LDL Cholesterol Calculated 84 mg/dl; Potassium 4.5 mmol/L (3.3-5.1); Sodium 138 mmol/L (135-145); Total Protein 6.8 g/dL (6.5-8.0); Triglycerides 283 mg/dL
[2022-12-19 14:49] LABS: Estimated Average Glucose 151 mg/dL; Hemoglobin A1c % 6.9 %
[2022-12-19 15:16] LABS: Creatinine Urine 59.44 mg/dL; Microalbumin Urine < 5.0 mg/L
[2022-12-19 15:18] LABS: Folate 4.5 ng/mL (> or = 4.0); TSH reflex Free T4 0.39 uIU/mL (0.32-4.0); Vitamin B12 436 pg/mL (200-900)
[2022-12-23 21:58] LABS: Lyme Abs Screen <0.90 index
== END 2022-12-19 11:08 | disposition home or self-care (01) ==
LOC: HO.HMGCLDS 11:07
PROVIDERS: PCP Nurse Practitioner Family; Visit Provider Nurse Practitioner Family
DX: Z00.00 Encounter for general adult medical examination without abnormal findings (principal); R53.83 Other fatigue; E11.9 Type 2 diabetes mellitus without complications
CPT/HCPCS: 36415; 80053; 80061; 81003; 82043; 82607; 82746; 83036; 84443; 85025; 86617; 86618

== ENCOUNTER 2023-03-12 13:59 | Outpatient (AMB) | payer OTHER, SELFPAY ==
[2023-03-12 14:15] VITALS: BP 140/92; PULSE 87; O2SAT 93; BMI 28.4
--- NOTE | 2023-03-12 14:15 | A.OFFPC_ITS ---
Vital Signs 03/12/23 14:15 Height 5 ft 4 in Weight 165 lb 8 oz BMI 28.4 BP 140/92 H Blood Pressure Location Rt brachial Position Sitting Pulse 87 Pulse Source Pulse Oximeter Pulse Oximetry (%) 93 Oxygen Delivery Method Room Air Intake Visit Reasons: med review Allergies codeine [CODEINE] Allergy (Unknown, Verified 03/12/23 18:03) NAUSEA Medication List - Last Reconciled 03/12/23 by Vu Sanchez, LATEXER- albuterol sulfate 90 mcg/actuation 1 inh inhalation QID PRN alcohol swabs (Alcohol Wipes) use to cleanse skin prior to testing 2-3 times per day; calcium carbonate-vitamin D3 600 mg-20 mcg (800 unit) (Caltrate with Vitamin D3) 1 tab PO DAILY clonazepam 1 mg PO BID 30 days FreeStyle [place] 2 [place] (flash glucose scanning reader) TID NS FreeStyle Cameron 2 Sensor (flash glucose sensor) TID NS FreeStyle Lite Meter (blood-glucose meter) check blood sugar twice a day NS FreeStyle Lite Strips (blood sugar diagnostic) As directed check blood sugar twice a day and if needed NS lancets (FreeStyle Lancets) test blood sugar twice a day and as needed. lisinopril 10 mg PO DAILY 90 days magnesium hydroxide mg PO metformin ER 750 mg PO DAILY omeprazole 40 mg PO DAILY pregabalin 200 mg PO BID 30 days rosuvastatin 20 mg PO DAILY 90 days semaglutide (Ozempic) 0.25 mg (0.4 mL) subcut QWEEK tizanidine 4 mg PO BID PRN 30 days trazodone 150 mg (1.5 x 100 mg) PO BEDTIME 90 days venlafaxine ER 37.5 mg PO BEDTIME 90 days venlafaxine ER 150 mg PO DAILY 90 days vitamin B complex 1 tab PO DAILY 30 days Tobacco use date assessed: 03/12/23 Dental Screening Dental Screen Date: 03/12/23 Did you have a dental visit in the last 12 months?: Yes Did you have a dental problem in the last 6 months where you did not have access to dental care?: No Was dental information given to patient?: Patient has dentist HPI med review HPI Details Pt is a diabetic, on an EUGENE and a statin. A1c in office today is 6.7. Microalbumin is up to date. Denies polyuria, polydipsia, and neuropathy. Pt denies any signs and symptoms of hypoglycemia and does know how to correct it. Pt reports that her blood sugar has been in the 200s in the am (has sensor). She is prescribed metformin 750mg bid but is only taking this once a day(does not want to take it twice a day). Will start ozempic 0.25mg. PT DID REPORT HAVING A SODA EVERY NIGHT, which is most likley causing the BS increase. pt educated on this [facility] Medical History (Updated 12/19/22 @ 12:47 by Vu Sanchez [facility]) Ankle fracture Anxiety Barretts esophagus Cough Depression GERD without esophagitis Hiatal hernia with GERD without esophagitis Onychia of toe Personal history of nicotine dependence Pneumonitis Pulmonary nodules Radiculopathy Tobacco dependence Surgical History (Updated 02/06/23 @ 18:22 by Vu Sanchez [facility]) History of ankle surgery (~01/2020) History of colonoscopy (~04/2021) History of esophagogastroduodenoscopy (EGD) (~04/2021) History of hip surgery (~1997) History of lumbar surgery Family History Maternal Aunt Breast CA Social History Housing: House Patient Tobacco Use Status: Former Tobacco user Quit Date: quit 07/20/22 Tobacco use type: Cigarette Years Smoked: 35 - onset 14yo, quit for 6 yrs - 1ppd x 35yrs - 35pyh e-Cigarette/Vaping Use: Currently Using Second Hand Smoke Exposure: Yes Current occupational status: employed 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 Yash Khoury, Isabel Hayden, Andrew Cisneros and colleagues, with an educational eri from [employer] Review of Systems Const Reports as per HPI Physical exam (Primary Care) Vital Signs: Last Vital Signs Pulse 87 03/12/23 14:15 BP 140/92 H 03/12/23 14:15 Pulse Ox 93 03/12/23 14:15 Oxygen Delivery Method Room Air 03/12/23 14:15 BMI result Body Mass Index 28.4 Tobacco/Smoking Status: Tobacco use Status Tobacco use date assessed 03/12/23 03/12/23 14:22 Patient Tobacco Use Status Former Tobacco user 03/12/23 14:22 Tobacco use type Cigarette 03/12/23 14:22 e-Cigarette/Vaping Use Currently Using 03/12/23 14:22 Thrive Assessment: Date of Thrive Assessment Date Thrive assessed 09/26/22 03/12/23 14:22 Const General: cooperative Orientation/consciousness: patient oriented x3 Resp Effort & Inspection: normal respiratory effort Auscultation: clear to auscultation bilaterally Cardio Rate: regular rate Rhythm: regular rhythm Heart sounds: S1 normal heart sound present and S2 normal heart sound present Neuro General: patient oriented x3 Extrem Other: bilat feet: + sensation with use of monofilament, feet intact without lesions Psych Appearance: grossly normal Mental Status: mental status grossly normal Speech and movement: Normal speech and movement present Affect: normal affect Attitude: cooperative Thought process: Normal thought process present Thought content: Normal thought content present Insight: Good insight present (Psych) Judgement: Good judgement present (Psych) Results AMB Hemoglobin A1c AMB Hemoglobin A1c 6.7 % Last Edit by SAMMY Rivera on 03/12/23 14:5 5 Results Reviewed Results Reviewed: Laboratory Last Values Hgb A1c (Clinic) 6.7 % (4.0-6.0) H 03/12/23 14:55 Assessment and Plan Assessment & Plan (1) Newly diagnosed diabetes: Code(s): E11.9 - Type 2 diabetes mellitus without complications Plan The patient agreed to the use of a medical assistant instructor for this encounter. Scribed for KYUNG Flores by Stephanie Mcgraw medical assistant instructor, on 03/12/2023 at 14:40 EST. Orders: Orders Comprehensive [place]. Panel Fast Today E11.9 - Type 2 diabetes mellitus without complications Lipid Panel Today E11.9 - Type 2 diabetes mellitus without complications TSH reflex Free T4 Today E11.9 - Type 2 diabetes mellitus without complications Complete Blood Count Auto Diff Today E11.9 - Type 2 diabetes mellitus without complications UA CC w/rflx Micro + Cult Today E11.9 - Type 2 diabetes mellitus without complications AMB Hemoglobin A1c Today Z13.9 - Encounter for screening, unspecified Medications: New semaglutide (Ozempic) for 4 weeks 0.25 mg (0.4 mL) subcut QWEEK 3 mL 0RF Coding Level of Care Code Est Pt Level 3 (78858) Diagnoses Newly diagnosed diabetes E11.9
== END 2023-03-12 15:07 | disposition home or self-care (01) ==
PROVIDERS: Visit Provider Nurse Practitioner Family
DX: E11.9 Type 2 diabetes mellitus without complications (principal); Z13.9 Encounter for screening, unspecified
CPT/HCPCS: 83036; 99213

== ENCOUNTER 2023-05-01 10:53 | Outpatient (REF) | payer OTHER, SELFPAY ==
[2023-05-01 12:56] LABS: MANUAL DIFF FLAG NO
[2023-05-01 13:10] LABS: Basophils Absolute Auto 0.1 X10*3/uL (0.0-0.2); Basophils Percent Auto 0.9 % (0-2); Eosinophils Absolute Auto 0.1 X10*3/uL (0.0-0.4); Eosinophils Percent Auto 0.6 % (0-4); Hematocrit 41.9 % (37.0-47.0); Hemoglobin 13.7 g/dl (12.0-16.0); Imm Gran Abs Auto 0.02 X10*3/uL (0.00-0.03); Imm Gran Pct Auto 0.2 % (0.0-0.4); Lymphocytes Absolute Auto 2.3 X10*3/uL (1.2-4.9); Lymphocytes Percent Auto 26.6 % (20-40); Mean Corpuscular HGB Conc 32.7 g/dl (31.0-35.0); Mean Corpuscular Hemoglobin 28.2 pg (27.0-33.0); Mean Corpuscular Volume 86.2 fL (80.0-98.0); Mean Platelet Volume 10.6 fL (9.4-12.3); Monocytes Absolute Auto 0.6 X10*3/uL (0.1-1.2); Monocytes Percent Auto 6.8 % (2-11); Neutrophils Absolute Auto 5.5 x10*3/uL (2.0-8.3); Neutrophils Percent Auto 64.9 % (45-73); Platelet Count 289 X10*3/uL (160-400); Red Blood Count 4.86 X10*6/uL (4.20-5.50); Red Cell Distribution Width 14.6 % (11.0-16.0); White Blood Count 8.5 X10*3/uL (4.8-10.8)
[2023-05-01 13:27] LABS: Alanine Aminotransferase 14 U/L (0-31); Albumin Level 4.5 g/dL (3.5-5.0); Alkaline Phosphatase 124 U/L (39-117); Anion Gap 14 (12-20); Aspartate Amino Transferase 16 U/L (5-31); Bilirubin Total 0.4 mg/dL (0.0-1.0); Blood Urea Nitrogen 15 mg/dL (9-16); Calcium 10.1 mg/dL (8.4-10.2); Carbon Dioxide 26 mmol/L (22-29); Chloride 103 mmol/L (96-108); Cholesterol 177 mg/dL (<200); Estimated Glomerular Filt Rate > 60; Glucose Fasting 120 mg/dL (60-99); HDL Cholesterol 39 mg/dL (>40); LDL Cholesterol Calculated 92 mg/dL (<100); Potassium 4.4 mmol/L (3.3-5.1); Sodium 139 mmol/L (135-145); Total Protein 7.5 g/dL (6.5-8.0); Triglycerides 233 mg/dL (<150)
[2023-05-01 13:45] LABS: TSH reflex Free T4 0.32 uIU/mL (0.32-4.0)
[2023-05-01 16:29] LABS: Appearance Urine Turbid; Color Urine Yellow; Glucose Urine UA Negative (Negative); Leukocyte Esterase Urine Negative (Negative); Nitrite Urine Negative (Negative); PH 5.5 (5.0-9.0); Specific Gravity - Urine >= 1.030 (1.005-1.025); Urine Blood Negative (Negative); Urine Ketones Negative (Negative); Urine Protein Negative (Neg-Trace)
== END 2023-05-01 10:54 | disposition home or self-care (01) ==
LOC: HO.HMGCLDS 10:53
PROVIDERS: PCP Nurse Practitioner Family; Visit Provider Nurse Practitioner Family
DX: E11.9 Type 2 diabetes mellitus without complications (principal)
CPT/HCPCS: 36415; 80053; 80061; 81003; 84443; 85025

== ENCOUNTER 2023-05-01 11:07 | Outpatient (AMB) | payer OTHER, SELFPAY ==
[2023-05-01 11:10] VITALS: BP 104/70; PULSE 72; TEMP 35.9; O2SAT 99; BMI 28.0
--- NOTE | 2023-05-01 11:10 | AM.OFFWIN_ITS ---
Intake Vital Signs 05/01/23 11:10 Height 5 ft 4 in Weight 163 lb 6 oz BMI 28.0 BP 104/70 Blood Pressure Location Rt brachial Position Sitting Pulse 72 Pulse Source Pulse Oximeter Temp 96.7 F L Temp Source Temporal Artery Scan Pulse Oximetry (%) 99 Oxygen Delivery Method Room Air Intake Visit Reasons: EP Bump on back of head Intake Note: Pt is here c/o itchy bump on the back of her head for the past few weeks. Pt states it has gotten bigger. Patient Tobacco Use Status: Former Tobacco user Quit Date: quit 07/20/22 Allergies codeine [CODEINE] Allergy (Unknown, Verified 05/01/23 11:11) NAUSEA Do you need a note to return to daycare/school/sports/work: No HPI HPI Comments History of Present Illness Details 57-year-old female that presents for a lump on the back her head. Mom did present for approximately 3 weeks could be increasing in size. Slightly tender to palpation. No drainage no fevers or chills. Does endorse some generalized fatigue. No bug bites PFSH Medical History (Updated 12/19/22 @ 12:47 by Vu Sanchez [facility]) Ankle fracture Anxiety Barretts esophagus Cough Depression GERD without esophagitis Hiatal hernia with GERD without esophagitis Onychia of toe Personal history of nicotine dependence Pneumonitis Pulmonary nodules Radiculopathy Tobacco dependence Surgical History (Updated 02/06/23 @ 18:22 by Vu Sanchez [facility] History of ankle surgery (~01/2020) History of colonoscopy (~04/2021) History of esophagogastroduodenoscopy (EGD) (~04/2021) History of hip surgery (~1997) History of lumbar surgery Family History (Updated 03/28/23 @ 13:22 by SAMMY Pearl) Maternal Aunt Breast CA Father Myocardial infarction Mother History of quadruple bypass Myocardial infarction Social History Housing: House Patient Tobacco Use Status: Former Tobacco user Quit Date: quit 07/20/22 Tobacco use type: Cigarette Years Smoked: 35 - onset 14yo, quit for 6 yrs - 1ppd x 35yrs - 35pyh e-Cigarette/Vaping Use: Currently Using Second Hand Smoke Exposure: Yes Current occupational status: employed 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 Current occupational exposures/hazards: No Cognitive needs: No Hearing needs: No Vision needs: No Female Reproductive History Menstrual Age of Menarche: 12 Review of Systems Const All systems reviewed & are unremarkable except as noted in HPI and below Reports as per HPI Skin/Breast Details: lump in the back of the head Physical Exam Vital Signs: Last Vital Signs Temp 96.7 F L 05/01/23 11:10 Pulse 72 05/01/23 11:10 BP 104/70 05/01/23 11:10 Pulse Ox 99 05/01/23 11:10 Oxygen Delivery Method Room Air 05/01/23 11:10 BMI result Body Mass Index 28.0 Const General: cooperative, healthy appearing, comfortable, no acute distress and alert Skin Other: question of small lump the occipital region On the right side mild tender with no overlying erythema or warmth General skin exam: decreased turgor Assessment & Plan Assessment & Plan (1) Head lump: Code(s): R22.0 - Localized swelling, mass and lump, head Plan VSS. exam notable for the may be small lump over the occipital region on a right side. Not in obvious or defined however tender to palpation no overlying erythema or warmth. First today she could been improved wounds versus recommend watchful waiting patient can reach out to her primary care for possible derm referral Discharge instructions, follow up and treatment are discussed with patient in my usual fashion. Alternatives in treatment are also discussed. The patient will return for worsening symptoms or as needed. Advised that any labs/imaging ordered will be followed up on and contact made if further treatment needed. Counseled that patient's condition may require further evaluation and/or treatment. Symptoms of concern for worsening disorder discussed in detail in my customary manner. Patient does verbalize understanding of the plan, there are no apparent barriers to communication. The patient is given the opportunity to ask questions and have them answered to his/her satisfaction Coding Level of Care Code Est Pt Level 2 (65959) Diagnoses Head lump R22.0
== END 2023-05-01 11:32 | disposition home or self-care (01) ==
PROVIDERS: PCP Nurse Practitioner Family; Visit Provider Physician Assistant
DX: R22.0 Localized swelling, mass and lump, head (principal)
CPT/HCPCS: 99212

== ENCOUNTER 2023-06-17 10:50 | Outpatient (AMB) | payer OTHER, SELFPAY ==
[2023-06-17 11:13] VITALS: BP 128/78; PULSE 80; TEMP 36.6; O2SAT 98; BMI 28.3
--- NOTE | 2023-06-17 11:13 | AM.OFFWIN_ITS ---
Intake Vital Signs 06/17/23 11:13 Height 5 ft 4 in Weight 165 lb BMI 28.3 BP 128/78 Blood Pressure Location Lt brachial Position Sitting Pulse 80 Pulse Source Pulse Oximeter Temp 97.8 F Temp Source Temporal Artery Scan Pulse Oximetry (%) 98 Intake Visit Reasons: EP, bump on back of head Intake Note: pt is here for c/o bump on back of head Patient Tobacco Use Status: Former Tobacco user Quit Date: quit 07/20/22 Allergies codeine [CODEINE] Allergy (Unknown, Verified 06/17/23 11:14) NAUSEA Do you need a note to return to daycare/school/sports/work: Yes HPI HPI Comments History of Present Illness Details This is a 57-year-old female with a past medical history of non insulin-dependent diabetes presenting for evaluation of a painful and itchy lesion on the back of her head that has been present for the past 2 months. Patient describes the pain as a pressure-like sensation for which she uses Aleve. She believes the lesion is growing in size. Patient denies having any fevers, chills, overt headaches, visual changes, neck pain or lightheadedness. Of note, patient was initially seen for this complaint on May 01, 2023. [facility] Medical History Pulmonary nodules Tobacco dependence Pneumonitis Cough Barretts esophagus Hiatal hernia with GERD without esophagitis GERD without esophagitis Personal history of nicotine dependence Ankle fracture Anxiety Depression Onychia of toe Radiculopathy Surgical History (Updated 02/06/23 @ 18:22 by Vu Sanchez [facility]) History of lumbar surgery History of hip surgery (~1997) History of esophagogastroduodenoscopy (EGD) (~04/2021) History of colonoscopy (~04/2021) History of ankle surgery (~01/2020) Family History (Updated 03/28/23 @ 13:22 by SAMMY Pearl) Maternal Aunt Breast CA Father Myocardial infarction Mother History of quadruple bypass Myocardial infarction Social History Housing: House Patient Tobacco Use Status: Former Tobacco user Quit Date: quit 07/20/22 Tobacco use type: Cigarette Years Smoked: 36 - onset 14yo, quit for 6 yrs - 1ppd x 35yrs - 35pyh e-Cigarette/Vaping Use: Currently Using Second Hand Smoke Exposure: Yes Current occupational status: employed 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 Current occupational exposures/hazards: No Cognitive needs: No Hearing needs: No Vision needs: No Female Reproductive History Menstrual Age of Menarche: 12 Review of Systems Const All systems reviewed & are unremarkable except as noted in HPI and below Denies chills, Denies fatigue and Denies fever(s) Eyes Reports no additional complaints, Denies blurry vision and Denies change in vision ENT Reports no additional complaints Skin/Breast Reports system reviewed and no additional complaints, except as documented and Reports changing lesions (posterior scalp) Neuro Reports as per HPI Endo Denies fatigue Physical Exam Vital Signs: Last Vital Signs Temp 97.8 F 06/17/23 11:13 Pulse 80 06/17/23 11:13 BP 128/78 06/17/23 11:13 Pulse Ox 98 06/17/23 11:13 BMI result Body Mass Index 28.3 Const General: cooperative, healthy appearing, comfortable, no acute distress and well developed Nutritional Appearance: average body habitus Orientation/consciousness: patient oriented x3 Limitations: no limitations HEENT Head: Yes normal to inspection, Yes atraumatic, Yes scalp lesion (discrete induration right occiput with tenderness measuring 2cm x 1.5cm), Yes scalp tenderness and Yes other (There is no erythema, fluctuance, retained foreign body or scaling noted) Skin General skin exam: no rashes or lesions noted, no erythema, no excoriation(s) and no hypertrophy Rashes: no rashes Trauma: no lacerations or abrasions Wounds: no wounds Hair: normal Neuro General: patient oriented x3 Psych Appearance: grossly normal Mental Status: mental status grossly normal Insight: Good insight present (Psych) Judgement: Good judgement present (Psych) Assessment & Plan Assessment & Plan (1) Skin lesion of scalp: Code(s): L98.9 - Disorder of the skin and subcutaneous tissue, unspecified Plan: No further pharmaceutical or specialist intervention warranted at this time, no imaging necessary given her history coupled with her physical examination. There is no evidence of a folliculitis, abscess or cellulitis. Patient to follow-up with PCP in 3 months, sooner if her symptoms exacerbate. Coding Level of Care Code Est Pt Level 3 (07556) Diagnoses Skin lesion of scalp L98.9 Time Spent (min) 15
== END 2023-06-17 12:06 | disposition home or self-care (01) ==
PROVIDERS: PCP Nurse Practitioner Family; Visit Provider Physician Assistant
DX: L98.9 Disorder of the skin and subcutaneous tissue, unspecified (principal)
CPT/HCPCS: 99213

== ENCOUNTER 2023-06-24 11:44 | Outpatient (REF) | payer OTHER, SELFPAY ==
--- NOTE | ~2023-06-24 | XR_ITS ---
EXAMINATION: XR BILATERAL HIPS WITH AP PELVIS CLINICAL INFORMATION: Pain in right hip. COMPARISON: 05/30/2020. AP pelvis 05/05/2014. CT abdomen and pelvis 11/19/2019. TECHNIQUE: 4 views total, AP and lateral views of each hip. FINDINGS: Right Hip: Mild joint space narrowing with degenerative changes. Alignment preserved. Left Hip: Mild joint space narrowing with degenerative changes. Alignment preserved. Deformity along the left femoral neck with adjacent ossicles probably related to prior trauma/surgery and at least partially demonstrated on CT abdomen and pelvis of 11/19/2019. Postsurgical changes minimally imaged in the lower lumbar spine. XR/XR hips PEPPER min 3V IMPRESSION: Mild degenerative changes bilateral hips. Deformity along the left femoral neck with adjacent ossicles probably related to prior trauma/surgery and at least partially demonstrated on CT abdomen and pelvis of 11/19/2019. Correlation with clinical exam and surgical history recommended. Additional imaging with CT scan or MRI should be considered for better visualization as these modalities are much more sensitive for detection of fracture or other underlying pathology.
[2023-06-24 13:30] LABS: Appearance Urine Clear; Color Urine Yellow; Glucose Urine UA Negative (Negative); Leukocyte Esterase Urine Negative (Negative); MANUAL DIFF FLAG NO; Nitrite Urine Negative (Negative); PH 5.5 (5.0-9.0); Specific Gravity - Urine 1.015 (1.005-1.025); Urine Blood Negative (Negative); Urine Ketones Negative (Negative); Urine Protein Negative (Neg-Trace)
[2023-06-24 13:54] LABS: Basophils Absolute Auto 0.1 X10*3/uL (0.0-0.2); Basophils Percent Auto 0.8 % (0-2); Eosinophils Percent Auto 0.4 % (0-4); Hematocrit 41.3 % (37.0-47.0); Hemoglobin 13.6 g/dl (12.0-16.0); Imm Gran Abs Auto 0.02 X10*3/uL (0.00-0.03); Imm Gran Pct Auto 0.3 % (0.0-0.4); Lymphocytes Absolute Auto 2.5 X10*3/uL (1.2-4.9); Mean Corpuscular HGB Conc 32.9 g/dl (31.0-35.0); Mean Corpuscular Hemoglobin 27.6 pg (27.0-33.0); Mean Corpuscular Volume 83.8 fL (80.0-98.0); Mean Platelet Volume 10.7 fL (9.4-12.3); Monocytes Absolute Auto 0.5 X10*3/uL (0.1-1.2); Monocytes Percent Auto 7.5 % (2-11); Platelet Count 290 X10*3/uL (160-400); Red Blood Count 4.93 X10*6/uL (4.20-5.50); Red Cell Distribution Width 14.2 % (11.0-16.0); White Blood Count 7.2 X10*3/uL (4.8-10.8)
[2023-06-24 14:27] LABS: Estimated Average Glucose 143 mg/dL; Hemoglobin A1c % 6.6 % (<6.0)
[2023-06-24 14:31] LABS: Alanine Aminotransferase 13 U/L (0-31); Albumin Level 4.4 g/dL (3.5-5.0); Alkaline Phosphatase 109 U/L (39-117); Anion Gap 13 (12-20); Aspartate Amino Transferase 12 U/L (5-31); Bilirubin Total 0.2 mg/dL (0.0-1.0); Blood Urea Nitrogen 12 mg/dL (9-16); Carbon Dioxide 26 mmol/L (22-29); Chloride 104 mmol/L (96-108); Cholesterol 174 mg/dL (<200); Estimated Glomerular Filt Rate > 60; Glucose Fasting 120 mg/dL (60-99); HDL Cholesterol 40 mg/dL (>40); LDL Cholesterol Calculated 84 mg/dL (<100); Potassium 4.4 mmol/L (3.3-5.1); Sodium 139 mmol/L (135-145); Total Protein 7.2 g/dL (6.5-8.0); Triglycerides 250 mg/dL (<150)
[2023-06-24 14:37] LABS: TSH reflex Free T4 0.29 uIU/mL (0.32-4.0)
[2023-06-24 15:24] LABS: Free T4 (Free Thyroxine) 0.88 ng/dL (0.71-1.85)
[2023-06-24 23:45] LABS: Creatinine Urine 84.84 mg/dL
== END 2023-06-24 11:45 | disposition home or self-care (01) ==
LOC: HO.HMGCX 11:44
PROVIDERS: PCP Nurse Practitioner Family; Visit Provider Nurse Practitioner Family
DX: E11.9 Type 2 diabetes mellitus without complications (principal); M25.552 Pain in left hip; M25.551 Pain in right hip
CPT/HCPCS: 36415; 73522; 80053; 80061; 81003; 82043; 82570; 83036; 84439; 84443; 85025

== ENCOUNTER 2023-07-23 10:54 | Outpatient (AMB) | payer OTHER, SELFPAY ==
--- NOTE | 2023-07-23 10:56 | MHC.OFFWIV ---
Intake Vital Signs 07/23/23 11:09 Height 5 ft 4 in Weight 165 lb BMI 28.3 BP 100/60 Blood Pressure Location Rt brachial Position Sitting Pulse 70 Pulse Source Pulse Oximeter Temp 96.9 F Temp Source Temporal Artery Scan Pulse Oximetry (%) 100 Oxygen Delivery Method Room Air Intake Visit Reasons: EP, bump by belly button Intake Note: Pt is here c/o having a painful bump inside her belly button. Patient Tobacco Use Status: Former Tobacco user Quit Date: quit 07/20/22 Allergies codeine [CODEINE] Allergy (Unknown, Verified 07/23/23 11:08) NAUSEA Do you need a note to return to daycare/school/sports/work: No HPI EP, bump by belly button HPI Details This is a 57 year old woman who presents today with 3 days of worsening abdominal pain. She reports tender and firm lump in belly around umbilicus. No external symptoms or lesions. Denies fever or chills. Denies diarrhea or constipation. Denies urinary symptoms. Reports some mild nausea but no vomiting. Reports bending and sitting are painful. Denies any chest pain, shortness of breath. History of GERD and hiatal hernia. No history of lower abdominal GI issues. Had BM today. No blood or mucous noted. [facility] Medical History Pulmonary nodules Tobacco dependence Pneumonitis Cough Barretts esophagus Hiatal hernia with GERD without esophagitis GERD without esophagitis Personal history of nicotine dependence Ankle fracture Anxiety Depression Onychia of toe Radiculopathy Surgical History History of lumbar surgery History of hip surgery (~1997) History of esophagogastroduodenoscopy (EGD) (~04/2021) History of colonoscopy (~04/2021) History of ankle surgery (~01/2020) Family History Maternal Aunt Breast CA Father Myocardial infarction Mother History of quadruple bypass Myocardial infarction Housing: House Patient Tobacco Use Status: Former Tobacco user Quit Date: quit 07/20/22 Tobacco use type: Cigarette Years Smoked: 35 - onset 14yo, quit for 6 yrs - 1ppd x 35yrs - 35pyh e-Cigarette/Vaping Use: Currently Using Second Hand Smoke Exposure: Yes Current occupational status: employed 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 Current occupational exposures/hazards: No Cognitive needs: No Hearing needs: No Vision needs: No Female Reproductive History Menstrual Age of Menarche: 12 Review of Systems Const All systems reviewed & are unremarkable except as noted in HPI and below Physical Exam Vital Signs: BMI result Body Mass Index 28.3 Const General: cooperative and no acute distress Neck Neck: Yes no lymphadenopathy Resp Effort & Inspection: normal respiratory effort and able to speak in complete sentences Auscultation: clear to auscultation bilaterally Cardio Jugular venous distension: no JVD Palpation: normal PMI Rate: regular rate Rhythm: regular rhythm GI Other: mild periumbilical distension, primarily superolaterally to the left of umbilicus. Severely tender and somewhat firm to palpation approx 4 cm superior to umbilicus and 2cm to the left in a circumferential distribution. Abdomen is otherwise soft/unremarkable. Normal BS x4 quads. Skin General skin exam: no rashes or lesions noted Extrem General: Yes capillary refill normal and Yes no clubbing, cyanosis or edema Psych Appearance: grossly normal Mental Status: mental status grossly normal Speech and movement: Normal speech and movement present Assessment & Plan Assessment & Plan (1) Periumbilic swelling, mass or lump: Code(s): R19.05 - Periumbilic swelling, mass or lump Plan: I have discussed with patient the need for abdominal imaging to rule out acute process due to periumbilical tenderness and palpable mass/swelling. She agrees with this and will go to [facility] by private vehicle for evaluation. Expect called to Jose at [facility] ED. Coding Level of Care Code Est Pt Level 3 (82784) Diagnoses Periumbilic swelling, mass or lump R19.05
[2023-07-23 11:09] VITALS: BP 100/60; PULSE 70; TEMP 36.1; O2SAT 100; BMI 28.3
== END 2023-07-23 11:49 | disposition home or self-care (01) ==
PROVIDERS: PCP Nurse Practitioner Family; Visit Provider Nurse Practitioner Family
DX: R19.05 Periumbilic swelling, mass or lump (principal)
CPT/HCPCS: 99213

== ENCOUNTER 2023-07-28 17:17 | Outpatient (REF) | payer OTHER, SELFPAY ==
--- NOTE | ~2023-07-28 | MR_ITS ---
EXAMINATION: MR HIP WITHOUT CONTRAST, LEFT CLINICAL INFORMATION: Left hip pain and numbness. COMPARISON: Bilateral hip and pelvic radiographs dated 06/24/2023. TECHNIQUE: MRI of the left hip was obtained using routine sequences on a high-field magnet. FINDINGS: ACETABULAR LABRUM: No labral tear. ARTICULAR CARTILAGE/BONE: Mild articular cartilage signal heterogeneity with small marginal osteophytes. No stress reaction, fracture, or avascular necrosis. No concerning lytic or blastic osseous lesion. Postsurgical change within the proximal left femur seen on multiple prior CTs dating back to 2016. No associated edema or evidence of acute osseous injury in this region. Partially visualized mild osteoarthritis at the right hip as well as moderate degenerative arthritis at the symphysis pubis. Orthopedic hardware within the lower lumbar spine. Degenerative disc disease at L5-S1. No concerning lytic or blastic osseous lesion. MUSCLES/TENDONS: Postsurgical change adjacent to the greater trochanter. The adjacent gluteus medius and gluteus minimus tendons are slightly attenuated with mild adjacent edema which could represent mild tendinosis. JOINT FLUID/BURSA: Mild edema within the region of the greater trochanter bursa, consistent with mild bursitis. No significant joint effusion. INTRAPELVIC STRUCTURES: Partially visualized probable posterior uterine fibroid. Sigmoid diverticulosis without evidence of acute diverticulitis. MR/MR hip LT wo con IMPRESSION: 1. Mild left hip osteoarthritis. No stress reaction, fracture, or avascular necrosis. 2. Postsurgical change adjacent to the left greater trochanter with mild tendinosis of the adjacent gluteus medius and gluteus minimus tendons. Mild greater trochanter bursitis. 3. Partially visualized mild osteoarthritis at the right hip as well as moderate degenerative arthritis at the symphysis pubis. 4. Partially visualized degenerative disc disease at L5-S1. 5. Partially visualized posterior uterine fibroid. Sigmoid diverticulosis.
== END 2023-07-28 17:18 | disposition home or self-care (01) ==
LOC: HO.MRI 17:17
PROVIDERS: PCP Nurse Practitioner Family; Visit Provider Nurse Practitioner Family
DX: R93.89 Abnormal findings on diagnostic imaging of other specified body structures (principal); M21.952 Unspecified acquired deformity of left thigh
CPT/HCPCS: 73721

== ENCOUNTER 2023-08-26 10:53 | Outpatient (REF) | payer OTHER, SELFPAY | END 2023-08-26 10:54 | disposition home or self-care (01) | LOC: HO.MAMMO 10:53 | PROVIDERS: PCP Nurse Practitioner Family; Referring Provider Obstetrics & Gynecology; Visit Provider Nurse Practitioner Family | DX: Z12.31 Encounter for screening mammogram for malignant neoplasm of breast (principal) | CPT/HCPCS: 77063; 77067 ==

== ENCOUNTER → 2023-08-26 11:00 | Outpatient (BNV) | payer OTHER, SELFPAY | PROVIDERS: PCP Nurse Practitioner Family; Referring Provider Obstetrics & Gynecology; Visit Provider Radiology Diagnostic Radiology | DX: Z12.31 Encounter for screening mammogram for malignant neoplasm of breast (principal) | CPT/HCPCS: 77063; 77067 ==

== ENCOUNTER 2023-09-10 11:17 | Outpatient (AMB) | payer OTHER, SELFPAY ==
--- NOTE | 2023-09-10 11:23 | A.OFFVIS_ITS ---
Intake Intake Visit Reasons: New prob- Pain in left hip Intake Note: Shannen a 58 year old female presents today for an evaluation of left hip pain. Patient reports her pain has been present for while, stating having arthritis. She states history of hip injections here at [facility] and would like to repeat injection. Allergies codeine [CODEINE] Allergy (Unknown, Verified 09/10/23 11:30) NAUSEA HPI New prob- Pain in left hip HPI Details 58-year-old female who presents to the [facility] today for evaluation of bilateral hip pain. She states she had hip injection in the past at [facility] which provided her relief. She has pain with sleeping on her side. She denies groin pain. She has a history of hip arthritis. [facility] Medical History Pulmonary nodules Tobacco dependence Pneumonitis Cough Barretts esophagus Hiatal hernia with GERD without esophagitis GERD without esophagitis Personal history of nicotine dependence Ankle fracture Anxiety Depression Onychia of toe Radiculopathy Surgical History History of lumbar surgery History of hip surgery (~1997) History of esophagogastroduodenoscopy (EGD) (~04/2021) History of colonoscopy (~04/2021) History of ankle surgery (~01/2020) Family History Maternal Aunt Breast CA Father Myocardial infarction Mother History of quadruple bypass Myocardial infarction Social History Housing: House Patient Tobacco Use Status: Former Tobacco user Quit Date: quit 07/20/22 Tobacco use type: Cigarette Years Smoked: 35 - onset 14yo, quit for 6 yrs - 1ppd x 35yrs - 35pyh e-Cigarette/Vaping Use: Currently Using Second Hand Smoke Exposure: Yes Current occupational status: employed 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 No pain with ROM of the hip. Pain along the greater trochanter. No pain with hip flexion or abduction. Negative tenderness along the SI joint, Negative SLR. NVI. Office Procedures Joint Injection/Drain Joint Injection/Drain Details: right hip trochanteric bursa Prep: site was prepped using aseptic technique, ethochloride spray was applied and injection warnings given Injected: 40 mg of, DepoMedrol, with 8 mL of and 1% plain lidocaine Procedure: The patient tolerated the procedure well and there was some relief with the local anesthesia Coding 24900 - Glenohumeral/Tronchanteric Bursa/Intraarticular Procedure code (CPT) selection complete Assessment & Plan Assessment & Plan (1) Greater trochanteric bursitis of both hips: Code(s): M70.61 - Trochanteric bursitis, right hip; M70.62 - Trochanteric bursitis, left hip Plan We discussed options today which include steroid injection. They did consent to move forward with the right hip injection, which was tolerated well. I recommended rest, ice and elevation and OTC anti-inflammatories PRN for discomfort. We also discussed their diabetes and the effect the steroid can have on their blood glucose levels; therefore, they will continue to monitor these very closely, especially since she has not have her Ozempic in over a month, for the next 72 hours. If there are any concerns, they should report to the ED immediately. She will return to see me back in 2 weeks for an injection in the left hip. Patient Instructions: Scribed for Nasra Borrego PA-C, by Chester Estes curator medical museum, on 09/10/2023 at 11:15 AM JUAN. Nasra William PA-C, have personally reviewed and agree with the information entered by the scribe. Quality Reporting (2019) Adult ([facility] 138/10/23/68) Smoking risk assessment performed?: Yes Patient Tobacco Use Status: Former Tobacco user Coding Level of Care Code New Pt Level 3 (72885) Diagnoses Greater trochanteric bursitis of both hips M70.61; M70.62 CPT Codes Coding - Joint 7: 37256 - Glenohumeral/Tronchanteric Bursa/Intraarticular ([id number])
== END 2023-09-10 11:54 | disposition home or self-care (01) ==
PROVIDERS: PCP Nurse Practitioner Family; Visit Provider Physician Assistant
DX: M70.61 Trochanteric bursitis, right hip (principal); M70.62 Trochanteric bursitis, left hip
CPT/HCPCS: 20610; 99213

== ENCOUNTER → 2023-09-10 11:17 | Outpatient (BNVA) | payer OTHER, SELFPAY | PROVIDERS: PCP Nurse Practitioner Family; Visit Provider Physician Assistant | DX: M70.61 Trochanteric bursitis, right hip (principal); M70.62 Trochanteric bursitis, left hip | CPT/HCPCS: 20610; J1020 ==

== ENCOUNTER 2023-10-01 10:55 | Outpatient (AMB) | payer OTHER, SELFPAY ==
--- NOTE | 2023-10-01 11:04 | A.OFFPC_ITS ---
Vital Signs 10/01/23 11:06 Height 5 ft 4 in Weight 162 lb 4 oz BMI 27.8 BP 140/80 H Blood Pressure Location Lt brachial Position Sitting Pulse 92 Pulse Source Pulse Oximeter Pulse Oximetry (%) 96 Oxygen Delivery Method Room Air Intake Visit Reasons: Annual PE Intake Note: Pt is here for her Annual PE Allergies codeine [CODEINE] Allergy (Unknown, Verified 10/01/23 11:11) NAUSEA Medication List - Last Reconciled 10/01/23 by Vu Sanchez SAFETY AND SECURITY MANAGER- albuterol sulfate 90 mcg/actuation 1 inh inhalation QID PRN alcohol swabs (Alcohol Wipes) use to cleanse skin prior to testing 2-3 times per day; calcium carbonate-vitamin D3 600 mg-20 mcg (800 unit) (Caltrate with Vitamin D3) 1 tab PO DAILY clonazepam 1 mg PO BID 30 days FreeStyle [place] 2 [place] (flash glucose scanning reader) TID NS FreeStyle Cameron 2 Sensor (flash glucose sensor) TID NS FreeStyle Lite Meter (blood-glucose meter) check blood sugar twice a day NS FreeStyle Lite Strips (blood sugar diagnostic) As directed check blood sugar twice a day and if needed NS lancets (FreeStyle Lancets) test blood sugar twice a day and as needed. lisinopril 10 mg PO DAILY 90 days magnesium hydroxide mg PO metformin ER 750 mg PO DAILY omeprazole 40 mg PO DAILY pregabalin 150 mg PO BID 30 days rosuvastatin 20 mg PO DAILY 90 days semaglutide (Ozempic) 0.5 mg (0.736 mL) subcut QWEEK trazodone 150 mg (1.5 x 100 mg) PO BEDTIME 90 days venlafaxine ER 150 mg PO DAILY 90 days vitamin B complex 1 tab PO DAILY 30 days Tobacco use date assessed: 10/01/23 Dental Screening Dental Screen Date: 10/01/23 Did you have a dental visit in the last 12 months?: No Did you have a dental problem in the last 6 months where you did not have access to dental care?: No Was dental information given to patient?: No HPI Annual PE HPI Details Pt is here for a PE. Will order labs. Colon screen is up to date. Mammo is up to date. Has a social media strategist. Pt is a diabetic, on an EUGENE and a statin. Last A1C was 6.6, due for repeat. Microalbumin is up to date. Denies polyuria, polydipsia, and neuropathy. Pt denies any signs and symptoms of hypoglycemia and does know how to correct it. Pt reports that her blood sugar has been around 118. Pt has a septal ulcer. Will refer to ENT. Pt recently broke up with her boyfriend, living with friends. pt reports she is safe [facility] Medical History (Updated 10/01/23 @ 11:44 by KYUNG Mccarthy) Physical exam Pulmonary nodules Tobacco dependence Pneumonitis Cough Barretts esophagus Hiatal hernia with GERD without esophagitis GERD without esophagitis Personal history of nicotine dependence Ankle fracture Anxiety Depression Onychia of toe Radiculopathy Surgical History History of lumbar surgery History of hip surgery (~1997) History of esophagogastroduodenoscopy (EGD) (~04/2021) History of colonoscopy (~04/2021) History of ankle surgery (~01/2020) Family History Maternal Aunt Breast CA Father Myocardial infarction Mother History of quadruple bypass Myocardial infarction Social History Housing: House Patient Tobacco Use Status: Former Tobacco user Quit Date: quit 07/20/22 Tobacco use type: Cigarette Years Smoked: 35 - onset 14yo, quit for 6 yrs - 1ppd x 35yrs - 35pyh e-Cigarette/Vaping Use: Currently Using Second Hand Smoke Exposure: Yes Current occupational status: employed Current occupation: [employer] Current occupational exposures/hazards: No Cognitive needs: No Hearing needs: No Vision needs: No Female Reproductive History Menstrual Age of Menarche: 12 Questionnaire PHQ-9 Over the last 2 weeks, how often have you been bothered by any of the following problems? 1. Little interest or pleasure in doing things: nearly every day 2. Feeling down, depressed, or hopeless: nearly every day 3. Trouble falling or staying asleep, or sleeping too much: nearly every day 4. Feeling tired or having little energy: nearly every day 5. Poor appetite or overeating: nearly every day 6. Feeling bad about yourself - or that you are a failure or have let yourself or your family down: not at all 7. Trouble concentrating on things, such as reading the newspaper or watching television: nearly every day 8. Moving or speaking so slowly that other people could have noticed. Or the opposite - being so fidgety or restless that you have been moving around a lot more than usual: not at all 9. Thoughts that you would be better off or of hurting yourself in some way: not at all Total score: 18 Depression Screening Interpretation: Positive (does not want a therapist, does not want a psychiatrist) Depression Screening Follow-up: Existing condition and Declines treatment Depression Screening Done: Yes 07205 - PHQ-9 Billing: Yes Source: Developed by Drs. Yash Khoury, Isabel Hayden, Andrew Cisneros and colleagues, with an educational eri from [employer]. Thrive Questionnaire Date Thrive assessed: 09/26/22 I am a: Patient What is your living situation today?: I do not have a steady places to live I choose not to answer this question Within the past 12 months, did the food you bought not last and you didn't have the money to get more?: Sometimes True Within the past 12 months, did you worry whether your food would run out before you got money to buy more?: Sometimes True Do you have trouble paying for medicines?: Yes Do you have trouble getting transportation to medical appointments?: Yes Do you have trouble paying your heating and electricity bill?: No Do you have trouble taking care of your child, family member or friend?: No Do you have trouble with day-to-day activities such as bathing, preparing meals, shopping, managing finances, etc.?: No Are you currently unemployed and looking for a job?: Yes Are you interested in more education?: No Please select the resources that you would like help with: Food, Paying for medicine and Transportation Currently or been in a relationship where the following occur: no concerns reported THRIVE Score: 4 AUDIT C Alcohol Use Questionnaire (AUDIT-C) 1. How often do you have a drink containing alcohol?: Never 3. How often do you have six or more drinks on one occasion?: Never Total Score: 0 CIPRIANO-7 AMB Questionnaire CIPRIANO-7 Date CIPRIANO - 7 assessed: 10/01/23 Feeling nervous, anxious, or on edge: 3 = Nearly every day Not being able to stop or control worryin = Nearly every day Worrying too much about different things: 3 = Nearly every day Trouble relaxin = Nearly every day Being so restless that it is hard to sit still: 3 = Nearly every day Becoming easily annoyed or irritable: 3 = Nearly every day Feeling afraid as if something awful might happen: 1 = Several days Total CIPRIANO-7 score (0-4 normal; 5-9 mild; 10-14 moderate; 15-21 severe): 19 Source: Developed by Drs. Yash Khoury, Isabel Hayden, Andrew Cisneros and colleagues, with an educational eri from [employer]. CIPRIANO-7 Assessment Billing CIPRIANO-7 Assessment Tool: CIPRIANO-7 Assessment 50151 Review of Systems Const Denies chills and Denies fever(s) Eyes Denies blurry vision ENT Denies vertigo, Denies dizziness and Denies sore throat Card Denies chest pain at rest, Denies chest pain with activity, Denies diaphoresis, Denies dyspnea and Denies dyspnea on exertion Resp Denies cough, Denies dyspnea, Denies dyspnea on exertion and Denies wheezing GI Denies abdominal pain, Denies melena, Denies hematochezia, Denies constipation, Denies diarrhea and Denies loose stools Denies hematuria Musc Denies numbness and Denies tingling Skin/Breast Denies lesions Neuro Denies vertigo, Denies dizziness, Denies numbness and Denies tingling Psych Denies anxiety, Denies depression, Denies homicidal ideation, Denies suicidal ideation and Denies other (substance abuse) Aller/Immun Denies wheezing Physical exam (Primary Care) Vital Signs: Last Vital Signs Pulse 92 10/01/23 11:06 BP 140/80 H 10/01/23 11:06 Pulse Ox 96 10/01/23 11:06 Oxygen Delivery Method Room Air 10/01/23 11:06 BMI result Body Mass Index 27.8 Tobacco/Smoking Status: Tobacco use Status Tobacco use date assessed 10/01/23 10/01/23 11:16 Patient Tobacco Use Status Former Tobacco user 10/01/23 11:04 Tobacco use type Cigarette 10/01/23 11:04 e-Cigarette/Vaping Use Currently Using 10/01/23 11:04 PHQ-9: PHQ-9 Score PHQ-9: Total score 18 10/01/23 11:22 Depression Screening Interpretation: Positive (does not want a therapist, does not want a psychiatrist) Depression Screening Follow-up: Existing condition and Declines treatment Thrive Assessment: Date of Thrive Assessment Date Thrive assessed 09/26/22 10/01/23 11:04 Currently or been in a relationship where the following occur: no concerns reported Const General: cooperative Nutritional Appearance: well nourished Orientation/consciousness: patient oriented x3 HENMT Head: Yes normal to inspection, Yes normocephalic and Yes atraumatic Ears: TM's normal bilaterally General nose exam: abnormal septum (left septum with large ulceration. ) Eyes General: appearance normal, both eyes and all related structures Alignment and Position: alignment normal and position normal Neck Neck: Yes normal visual inspection and Yes no lymphadenopathy Thyroid: Thyroid normal Resp Effort & Inspection: normal respiratory effort Auscultation: clear to auscultation bilaterally Cardio Rate: regular rate Rhythm: regular rhythm Heart sounds: S1 normal heart sound present, S2 normal heart sound present and no murmurs GI Palpation (GI): Soft to palpation and nontender Auscultation: normal bowel sounds Skin Rashes: no rashes Neuro General: patient oriented x3, moves all extremities, no focal motor deficits and deep tendon reflexes 2+ bilaterally Romberg Test: Negative Extrem Other: bilat feet: + sensation with use of monofilament Psych Appearance: grossly normal Mental Status: mental status grossly normal Speech and movement: Normal speech and movement present Affect: normal affect Attitude: cooperative Thought process: Normal thought process present Thought content: Normal thought content present Insight: Good insight present (Psych) Judgement: Good judgement present (Psych) Assessment and Plan Assessment & Plan (1) Physical exam: Code(s): Z00.00 - Encounter for general adult medical examination without abnormal findings Plan: Labs ordered (2) Diabetes: Code(s): E11.9 - Type 2 diabetes mellitus without complications Plan: Labs ordered (3) Nasal septal ulcer: Code(s): J34.0 - Abscess, furuncle and carbuncle of nose Plan: Referred to ENT Plan The patient agreed to the use of a medical technologist hematology for this encounter. Scribed for Vu Sanchez SAFETY AND SECURITY MANAGER- by Stephanie Mcgraw, medical technologist hematology, on 10/01/2023 at 11:40 EST. Orders: Orders Complete Blood Count Auto Diff Today Z00.00 - Encounter for general adult medi yael examination without abnormal findings TSH reflex Free T4 Today Z00.00 - Encounter for general adult medical examination without abnormal findings Lipid Panel Today Z00.00 - Encounter for general adult medical examination without abnormal findings Hemoglobin A1c Today E11.9 - Type 2 diabetes mellitus without complications Comprehensive [place]. Panel Fast Today Z00.00 - Encounter for general adult medical examination without abnormal findings UA CC w/rflx Micro + Cult Today Z00.00 - Encounter for general adult medical examination without abnormal findings Referrals Ear/Nose/Throat Referral J34.0 - Abscess, furuncle and carbuncle of nose Coding Level of Care Code Est Pt Prev Care 40-64y(11626) Diagnoses Physical exam Z00.00 Diabetes E11.9 Nasal septal ulcer J34.0 Additional Codes CIPRIANO-7 Assessment Billing - CIPRIANO-7 Assessment Tool: CIPRIANO-7 Assessment 40162 ([id number])
[2023-10-01 11:06] VITALS: BP 140/80; PULSE 92; O2SAT 96; BMI 27.8
== END 2023-10-01 11:52 | disposition home or self-care (01) ==
PROVIDERS: Visit Provider Nurse Practitioner Family
DX: Z00.00 Encounter for general adult medical examination without abnormal findings (principal); E11.9 Type 2 diabetes mellitus without complications; J34.0 Abscess, furuncle and carbuncle of nose
CPT/HCPCS: 99396

== ENCOUNTER 2023-10-01 11:52 | Outpatient (REF) | payer OTHER, SELFPAY ==
[2023-10-01 13:09] LABS: MANUAL DIFF FLAG NO
[2023-10-01 13:20] LABS: Basophils Percent Auto 0.3 % (0-2); Eosinophils Absolute Auto 0.3 X10*3/uL (0.0-0.4); Hematocrit 39.6 % (37.0-47.0); Hemoglobin 13.1 g/dl (12.0-16.0); Imm Gran Abs Auto 0.02 X10*3/uL (0.00-0.03); Imm Gran Pct Auto 0.2 % (0.0-0.4); Lymphocytes Absolute Auto 2.3 X10*3/uL (1.2-4.9); Lymphocytes Percent Auto 23.7 % (20-40); Mean Corpuscular HGB Conc 33.1 g/dl (31.0-35.0); Mean Corpuscular Hemoglobin 28.1 pg (27.0-33.0); Mean Corpuscular Volume 84.8 fL (80.0-98.0); Mean Platelet Volume 10.1 fL (9.4-12.3); Monocytes Absolute Auto 0.6 X10*3/uL (0.1-1.2); Monocytes Percent Auto 6.6 % (2-11); Neutrophils Absolute Auto 6.3 x10*3/uL (2.0-8.3); Neutrophils Percent Auto 66.2 % (45-73); Platelet Count 340 X10*3/uL (160-400); Red Blood Count 4.67 X10*6/uL (4.20-5.50); Red Cell Distribution Width 14.4 % (11.0-16.0); White Blood Count 9.5 X10*3/uL (4.8-10.8)
[2023-10-01 13:24] LABS: Estimated Average Glucose 123 mg/dL; Hemoglobin A1c % 5.9 % (<6.0)
[2023-10-01 13:36] LABS: Alanine Aminotransferase 16 U/L (0-31); Albumin Level 4.5 g/dL (3.5-5.0); Alkaline Phosphatase 125 U/L (39-117); Anion Gap 16 (12-20); Aspartate Amino Transferase 17 U/L (5-31); Bilirubin Total 0.4 mg/dL (0.0-1.0); Blood Urea Nitrogen 18 mg/dL (9-16); Calcium 9.7 mg/dL (8.4-10.2); Carbon Dioxide 25 mmol/L (22-29); Chloride 100 mmol/L (96-108); Cholesterol 127 mg/dL (<200); Estimated Glomerular Filt Rate 56; Glucose Fasting 92 mg/dL (60-99); HDL Cholesterol 37 mg/dL (>40); LDL Cholesterol Calculated 58 mg/dL (<100); Potassium 4.2 mmol/L (3.3-5.1); Sodium 137 mmol/L (135-145); Total Protein 7.6 g/dL (6.5-8.0); Triglycerides 162 mg/dL (<150)
[2023-10-01 13:54] LABS: TSH reflex Free T4 0.21 uIU/mL (0.32-4.0)
[2023-10-01 14:25] LABS: Free T4 (Free Thyroxine) 1.04 ng/dL (0.71-1.85)
== END 2023-10-01 11:53 | disposition home or self-care (01) ==
LOC: HO.HMGCLDS 11:52
PROVIDERS: PCP Nurse Practitioner Family; Visit Provider Nurse Practitioner Family
DX: Z00.00 Encounter for general adult medical examination without abnormal findings (principal); E11.9 Type 2 diabetes mellitus without complications
CPT/HCPCS: 36415; 80053; 80061; 83036; 84439; 84443; 85025

== ENCOUNTER 2023-11-24 11:19 | Outpatient (REF) | payer OTHER, SELFPAY ==
--- NOTE | ~2023-11-24 | US_ITS ---
EXAMINATION: US THYROID CLINICAL INFORMATION: Other specified abnormal findings of blood chemistry. Low TSH. COMPARISON: None available. TECHNIQUE: Linear transducer grayscale and color Doppler examination with attention to the region of the thyroid. FINDINGS: SIZE: Measurements of the thyroid lobes and nodules are given in sagittal, anteroposterior and transverse dimensions respectively. Right Thyroid Lobe: 4.7 x 1.6 x 1.7 cm, volume 6.7 mL. Parenchyma: The gland echotexture is homogeneous. Thyroid vascularity is normal. Left Thyroid Lobe: 5.1 x 1.4 x 1.8 cm, volume 6.7 mL. Parenchyma: The gland echotexture is homogeneous. Thyroid vascularity is normal. Isthmus: 0.4 cm in maximum AP dimension. No suspicious thyroid nodule is seen. A few subcentimeter cysts in the right thyroid lobe. NODES: No lymphadenopathy is seen in the tissue surrounding the thyroid gland. US/US thyroid IMPRESSION: No suspicious thyroid nodule is seen. A few subcentimeter cysts in the right thyroid lobe. ACR TI-RADS RECOMMENDATION REFERENCE: Ultrasound-guided fine-needle aspiration, followup ultrasound, no further followup. * TR1 (0 point) and TR2 (2 points): No FNA or follow up. * TR3 (3 points): FNA if more than or equal to 2.5 cm in maximum dimension, followup ultrasound in 1, 3 and 5 years if 1.5 to 2.4 cm in maximum dimension. * TR4 (4-6 points): FNA if more than or equal to 1.5 cm in maximum dimension, followup ultrasound in 1, 2, 3 and 5 years if 1 to 1.4 cm in maximum dimension. * TR5 (more than or equal to 7 points): FNA if more than or equal to 1 cm in maximum dimension, followup ultrasound every year for 5 years if 0.5 to 0.9 cm in maximum dimension. * TR3, TR4 or TR5 nodules that are below the size threshold for followup receive no followup.
== END 2023-11-24 11:20 | disposition home or self-care (01) ==
LOC: HO.HMGCX 11:19
PROVIDERS: PCP Nurse Practitioner Family; Visit Provider Nurse Practitioner Family
DX: R79.89 Other specified abnormal findings of blood chemistry (principal)
CPT/HCPCS: 76536

== ENCOUNTER 2024-01-01 12:37 | Outpatient (REF) | payer OTHER, SELFPAY ==
--- NOTE | ~2024-01-01 | CT_ITS ---
EXAMINATION: CT CHEST SCREENING CLINICAL INFORMATION: Personal history of nicotine dependence. The patient has a 40 pack-year history of smoking, having quit 1 year ago. COMPARISON: CT chest 12/19/2022. X-ray chest 07/17/2021. TECHNIQUE: Multidetector volumetric CT imaging of the chest is performed on a Siemens SOMATOM Definition scanner without contrast using low dose technique. Additional 2D coronal and sagittal reformatted images and axial 3D maximum intensity projection (MIP) images are generated on the CT workstation. This CT examination was performed using dose optimization techniques as appropriate, variously including the following: *Automated exposure control *Adjustment of mA and/or kV according to patient size (this includes techniques or standardized protocols for targeted exams where dose is matched to indication/reason for exam; i.e. extremities or head) *Use of iterative reconstruction technique DLP: 42 mGy-cm FINDINGS: LUNGS: Emphysematous changes are seen along with bronchial thickening. The lungs are otherwise clear with no evidence of inflammation or nodules. MEDIASTINUM: The mediastinum is normal. CORONARY ARTERY CALCIFICATION: [id number]. PLEURA: There is no pleural effusion. No pleural mass or thickening. AXILLA: No lymphadenopathy. UPPER ABDOMEN: There is borderline hepatic steatosis. The appearance of the stomach with diffuse mural thickening is again seen, probably secondary to under distention. OSSEOUS STRUCTURES: Unremarkable. CT/CT lung screening IMPRESSION: 1. No evidence of suspicious pulmonary nodules. 2. Incidental note made of emphysema, mild to moderate coronary artery calcifications and borderline hepatic steatosis. ASSESSMENT: Lung-RADS category 1: Negative RECOMMENDATION: Routine annual low-dose CT screening in 12 months.
== END 2024-01-01 12:38 | disposition home or self-care (01) ==
LOC: HO.CT 12:37
PROVIDERS: PCP Nurse Practitioner Family; Visit Provider Nurse Practitioner Family
DX: Z12.2 Encounter for screening for malignant neoplasm of respiratory organs (principal); Z87.891 Personal history of nicotine dependence
CPT/HCPCS: 71271

== ENCOUNTER 2024-01-12 12:50 | Outpatient (AMB) | payer OTHER, SELFPAY ==
--- NOTE | 2024-01-12 13:24 | A.OFFPC_ITS ---
Vital Signs 01/12/24 13:27 Height 5 ft 4 in Weight 158 lb BMI 27.1 BP 108/70 Blood Pressure Location Lt brachial Position Sitting Pulse 76 Pulse Source Pulse Oximeter Pulse Oximetry (%) 98 Oxygen Delivery Method Room Air Intake Visit Reasons: 3/4 month follow up Allergies codeine [CODEINE] Allergy (Unknown, Verified 01/12/24 15:10) NAUSEA Medication List - Last Reconciled 01/12/24 by Vu Sanchez, [facility]- albuterol sulfate 90 mcg/actuation 1 inh inhalation QID PRN alcohol swabs (Alcohol Wipes) use to cleanse skin prior to testing 2-3 times per day; ascorbic acid (vitamin C) ER 500 mg PO DAILY calcium carbonate-vitamin D3 600 mg-20 mcg (800 unit) (Caltrate with Vitamin D3) 1 tab PO DAILY clonazepam 1 mg PO BID 30 days FreeStyle Cameron 2 Corona (flash glucose scanning reader) TID NS FreeStyle Cameron 2 Sensor (flash glucose sensor) TID NS FreeStyle Lite Meter (blood-glucose meter) check blood sugar twice a day NS FreeStyle Lite Strips (blood sugar diagnostic) As directed check blood sugar twice a day and if needed NS lancets (FreeStyle Lancets) test blood sugar twice a day and as needed. lisinopril 10 mg PO DAILY 90 days magnesium hydroxide mg PO metformin ER 750 mg PO DAILY omeprazole 40 mg PO DAILY pregabalin 150 mg PO BID 30 days rosuvastatin 20 mg PO DAILY 90 days semaglutide 1 mg (0.75 mL) subcut QWEEK trazodone 150 mg (1.5 x 100 mg) PO BEDTIME 90 days venlafaxine ER 150 mg PO DAILY 90 days vitamin B complex 1 tab PO DAILY 30 days Tobacco use date assessed: 10/01/23 Dental Screening Dental Screen Date: 10/01/23 HPI 3/4 month follow up HPI Details Pt is a diabetic, on an EUGENE and a statin. A1C in office today is 7.0. Microalbumin is up to date. Denies polyuria, polydipsia, and neuropathy. Pt denies any signs and symptoms of hypoglycemia and does know how to correct it. Will increase ozempic from 0.5mg to 1mg. Pt reports discoloration of her toes. Will order US and refer to vascular, pt smoked most of her life. [facility] Medical History Physical exam Pulmonary nodules Tobacco dependence Pneumonitis Cough Barretts esophagus Hiatal hernia with GERD without esophagitis GERD without esophagitis Personal history of nicotine dependence Ankle fracture Anxiety Depression Onychia of toe Radiculopathy Surgical History History of lumbar surgery History of hip surgery (~1997) History of esophagogastroduodenoscopy (EGD) (~04/2021) History of colonoscopy (~04/2021) History of ankle surgery (~01/2020) Family History Maternal Aunt Breast CA Father Myocardial infarction Mother History of quadruple bypass Myocardial infarction Social History Housing: House Patient Tobacco Use Status: Former Tobacco user Quit Date: quit 07/20/22 Tobacco use type: Cigarette Years Smoked: 35 - onset 14yo, quit for 6 yrs - 1ppd x 35yrs - 35pyh e-Cigarette/Vaping Use: Currently Using Second Hand Smoke Exposure: Yes Current occupational status: employed Current occupation: WORK[employer] Current occupational exposures/hazards: No Cognitive needs: No Hearing needs: No Vision needs: No Female Reproductive History Menstrual Age of Menarche: 12 Questionnaire Thrive Questionnaire Date Thrive assessed: 09/26/22 CIPRIANO-7 AMB Questionnaire CIPRIANO-7 Date CIPRIANO - 7 assessed: 10/01/23 Source: Developed by Drs. Yash Khoury, Isabel Hayden, Andrew Cisneros and colleagues, with an educational eri from [employer]. Review of Systems Const Reports as per HPI Physical exam (Primary Care) Vital Signs: Last Vital Signs Pulse 76 01/12/24 13:27 BP 108/70 01/12/24 13:27 Pulse Ox 98 01/12/24 13:27 Oxygen Delivery Method Room Air 01/12/24 13:27 BMI result Body Mass Index 27.1 Tobacco/Smoking Status: Tobacco use Status Tobacco use date assessed 10/01/23 01/12/24 13:25 Patient Tobacco Use Status Former Tobacco user 01/12/24 13:25 Tobacco use type Cigarette 01/12/24 13:25 e-Cigarette/Vaping Use Currently Using 01/12/24 13:25 Thrive Assessment: Date of Thrive Assessment Date Thrive assessed 09/26/22 01/12/24 13:25 Const General: cooperative Orientation/consciousness: patient oriented x3 Resp Effort & Inspection: normal respiratory effort Auscultation: clear to auscultation bilaterally Cardio Rate: regular rate Rhythm: regular rhythm Heart sounds: S1 normal heart sound present, S2 normal heart sound present and no murmurs Neuro General: patient oriented x3 Extrem Other: bluish hue to bilat big toes (left>right), cold to touch, present left pedal pulse, difficulty finding right pedal pulse Psych Appearance: grossly normal Mental Status: mental status grossly normal Speech and movement: Normal speech and movement present Affect: normal affect Attitude: cooperative Thought process: Normal thought process present Thought content: Normal thought content present Insight: Good insight present (Psych) Judgement: Good judgement present (Psych) Results AMB Hemoglobin A1c AMB Hemoglobin A1c 7.0 % Last Edit by ARIN Pablo on 01/12/24 13 :46 Results Reviewed Results Reviewed: Laboratory Last Values Hgb A1c (Clinic) 7.0 % (4.0-6.0) H 01/12/24 13:45 Assessment and Plan Assessment & Plan (1) Discoloration of skin of toe: Code(s): L81.9 - Disorder of pigmentation, unspecified Plan: Referred to vascular, US ordered (2) Claudication: Code(s): I73.9 - Peripheral vascular disease, unspecified Plan: Referred to vascular, US ordered (3) Diabetes: Code(s): E11.9 - Type 2 diabetes mellitus without complications Plan: increased ozempic Plan The patient agreed to the use of a medical equipment technician for this encounter. Scribed for KYUNG Flores by deepak Alexandra scribe, on 01/12/2024 at 13:50 EST. Orders: Orders AMB Hemoglobin A1c Today Z13.9 - Encounter for screening, unspecified US arterial duplex LE BI Today I73.9 - Peripheral vascular disease, unspecified, L81.9 - Disorder of pigmentation, unspecified Referrals Vascular Surgery Referral I73.9 - Peripheral vascular disease, unspecified, L81.9 - Disorder of pigmentation, unspecified Medications: Changed From semaglutide (Ozempic) 0.5 mg (0.736 mL) subcut QWEEK 9 mL 1RF To semaglutide 1 mg (0.75 mL) subcut QWEEK 3 mL 1RF Refilled omeprazole 40 mg PO DAILY 90 caps 1RF venlafaxine ER 150 mg PO DAILY 90 caps 1RF 90 days F32.9 - Major depressive disorder, single episode, unspecified, F41.9 - Anxiety disorder, unspecified Coding Level of Care Code Est Pt Level 3 (67853) Diagnoses Discoloration of skin of toe L81.9 Claudication I73.9 Diabetes E11.9
[2024-01-12 13:27] VITALS: BP 108/70; PULSE 76; O2SAT 98; BMI 27.1
== END 2024-01-12 14:03 | disposition home or self-care (01) ==
PROVIDERS: PCP Nurse Practitioner Family; Visit Provider Nurse Practitioner Family
DX: E11.51 Type 2 diabetes mellitus with diabetic peripheral angiopathy without gangrene (principal); L81.9 Disorder of pigmentation, unspecified; I73.9 Peripheral vascular disease, unspecified
CPT/HCPCS: 83036; 99214

== ENCOUNTER 2024-01-22 13:24 | Outpatient (REF) | payer OTHER, SELFPAY ==
--- NOTE | ~2024-01-22 | US_ITS ---
EXAMINATION: BILATERAL LOWER EXTREMITY DUPLEX CLINICAL INFORMATION: PVD COMPARISON: None TECHNIQUE: Real-time ultrasound and Doppler techniques (integrating B-mode 2-D vascular images, Doppler spectral analysis and color flow Doppler imaging) were utilized to interrogate the lower extremities. FINDINGS: RIGHT LEG: Common femoral artery: 91.6 cm/s, triphasic Profunda femoris artery: 51.7 cm/s, triphasic Superficial femoral artery (proximal): 92.7 cm/s, biphasic Superficial femoral artery (mid): 62.7 cm/s, biphasic Superficial femoral artery (distal): 69 cm/s, triphasic Popliteal artery: 44.2 cm/s, biphasic Posterior tibial artery: 53 cm/s, biphasic LEFT LEG: Common femoral artery: 106 cm/s, triphasic Profunda femoris artery: 52.1 cm/s, triphasic Superficial femoral artery (proximal): 78.1 cm/s, triphasic Superficial femoral artery (mid): 84.5 cm/s, biphasic Superficial femoral artery (distal): 83.5 cm/s, biphasic Popliteal artery: 44.7 cm/s, biphasic Posterior tibial artery: 59 cm/s, biphasic US/US arterial duplex LE BI IMPRESSION: There is no evidence of any hemodynamically significant lower extremity arterial disease by pressure, waveform or duplex Doppler criteria at rest.
== END 2024-01-22 13:25 | disposition home or self-care (01) ==
LOC: HO.US 13:24
PROVIDERS: PCP Nurse Practitioner Family; Visit Provider Nurse Practitioner Family
DX: I73.9 Peripheral vascular disease, unspecified (principal); L81.9 Disorder of pigmentation, unspecified
CPT/HCPCS: 93925

== ENCOUNTER 2024-02-09 11:46 | Outpatient (REF) | payer OTHER, SELFPAY ==
--- NOTE | ~2024-02-09 | XR_ITS ---
EXAMINATION: XR PELVIS CLINICAL INFORMATION: Pain. COMPARISON: Left hip radiograph 06/24/2023. TECHNIQUE: AP view of the pelvis. FINDINGS: Unchanged subtle deformities with bony productive changes in the left intertrochanteric femur. No acute fracture or dislocation. Mild degenerative osteoarthritis in both hips. SI joints are symmetric. Pubic symphysis and pelvic rami are maintained. Redemonstration of spinal hardware at L4-L5. No significant soft tissue abnormality. XR/XR pelvis 1-2V IMPRESSION: 1. No acute fracture or dislocation. 2. Stable chronic changes in the left intertrochanteric region. 3. Mild degenerative osteoarthritis in both hips.
== END 2024-02-09 11:47 | disposition home or self-care (01) ==
LOC: HO.HOSX 11:46
PROVIDERS: Visit Provider Orthopaedic Surgery
DX: M70.61 Trochanteric bursitis, right hip (principal); M70.62 Trochanteric bursitis, left hip
CPT/HCPCS: 72170; J0665; J1100

== ENCOUNTER 2024-02-09 12:44 | Outpatient (AMB) | payer OTHER, SELFPAY ==
--- NOTE | 2024-02-09 12:45 | MHC.OFFVIS ---
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 Hx of Left femur fracture with screws that have since been removed, as well as L4-L5. Patient expresses she has been having ongoing pain for 4 - 5 years and her right hip is more painful than left. She states sleeping, prolonged long distance walking and sitting aggravate her symptoms. She has tried and failed Aleve. She has a history of cortisone injections in her right hip which provided her with relief for about a month and a half. [facility] is referring her to PT after she receives her back injections. Hx of DM. 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 In addition cox branson describes bilateral lateral hip pain and occasional groin pain. The groin pain is not common or severe. Hx of Left femur fracture with ottoniel and screws that have since been removed, as well as L4-L5 surgery( fusion?). Patient expresses she has been having ongoing pain for 4 - 5 years and her right hip is more painful than left. She states sleeping, prolonged long distance walking and sitting aggravate her symptoms. She has tried and failed Aleve. She has a history of cortisone injections in her right hip which provided her with relief for about a month and a half. [facility] is referring her to PT after she receives her back injections. Hx of DM. [facility] Medical History Physical exam Pulmonary nodules Tobacco dependence Pneumonitis Cough Barretts esophagus Hiatal hernia with GERD without esophagitis GERD without esophagitis Personal history of nicotine dependence Ankle fracture Anxiety Depression Onychia of toe Radiculopathy Surgical History History of lumbar surgery History of hip surgery (~1997) History of esophagogastroduodenoscopy (EGD) (~04/2021) History of colonoscopy (~04/2021) History of ankle surgery (~01/2020) Family History Maternal Aunt Breast CA Father Myocardial infarction Mother History of quadruple bypass Myocardial infarction Social History Housing: House Patient Tobacco Use Status: Former Tobacco user Tobacco use type: Cigarette Years Smoked: 35 - onset 14yo, quit for 6 yrs - 1ppd x 35yrs - 35pyh e-Cigarette/Vaping Use: Currently Using Second Hand Smoke Exposure: Yes Current occupational status: employed Current occupation: [employer] Current occupational exposures/hazards: No Cognitive needs: No Hearing needs: No Vision needs: No Female Reproductive History Menstrual Age of Menarche: 12 Physical Exam Vital Signs: BMI result Body Mass Index 27.1 Extrem Other: No pain with ROM of the hip. Negative impingement. There is ttp over the greater trochanter right > left. No pain with hip flexion or abduction. Negative tenderness along the SI joint, Negative SLR. NVI. Quality Reporting (2019) Adult ([facility] 138/10/23/68) Smoking risk assessment performed?: Yes Patient Tobacco Use Status: Former Tobacco user Results Reviewed Results Reviewed: I personally reviewed the MR images. IMPRESSION: 1. Mild left hip osteoarthritis. No stress reaction, fracture, or avascular necrosis. 2. Postsurgical change adjacent to the left greater trochanter with mild tendinosis of the adjacent gluteus medius and gluteus minimus tendons. Mild greater trochanter bursitis. 3. Partially visualized mild osteoarthritis at the right hip as well as moderate degenerative arthritis at the symphysis pubis. 4. Partially visualized degenerative disc disease at L5-S1. 5. Partially visualized posterior uterine fibroid. Sigmoid diverticulosis. Assessment & Plan Assessment & Plan (1) Greater trochanteric bursitis of both hips: Code(s): M70.61 - Trochanteric bursitis, right hip; M70.62 - Trochanteric bursitis, left hip Category: Medical Plan: This is a 58 yo F with bialteral greater trochanteric bursitis with an element of gluteus tenonitis on the right. I suspect her primary problkem is her spin and her poor gait mechanics. I discussed thsi with her. She does have some OA but I think that is not her primary problem and , in addition to her being < 60, I recommend PT and that she avoid surgery. I discussed this with her. She will let me know if there is anything I can do for her. Orders: Orders XR pelvis 1-2V 02/09/24 M25.559 - Pain in unspecified hip Coding Level of Care Code Est Pt Level 4 (44278) Diagnoses Greater trochanteric bursitis of both hips M70.61; M70.62
[2024-02-09 12:47] VITALS: BMI 27.1
== END 2024-02-09 13:25 | disposition home or self-care (01) ==
PROVIDERS: PCP Nurse Practitioner Family; Visit Provider Orthopaedic Surgery
DX: M70.61 Trochanteric bursitis, right hip (principal); M70.62 Trochanteric bursitis, left hip
CPT/HCPCS: 99214

== ENCOUNTER 2024-03-11 12:31 | Outpatient (AMB) | payer OTHER, SELFPAY ==
--- NOTE | 2024-03-11 13:01 | A.OFFVIS_ITS ---
Vital Signs 03/11/24 13:02 Height 5 ft 4 in Weight 161 lb BMI 27.6 Intake Visit Reasons: OV-Pain in left hip, please see MRI/imaging Intake Note: Shannen is a 58 year old female who presents today for a follow up for her left hip bursitis. right hip injection done 09/10/23. She was instructed to start PT but is holding off until she has her back injections which are due in April Allergies codeine [CODEINE] Allergy (Unknown, Verified 02/09/24 13:00) NAUSEA HPI HPI OV-Pain in left hip, please see MRI/imaging: Details: Shannen is a 58 year old female who presents today for a follow up for her left hip bursitis. She has pain over lateral right hip. Pain at night and with stairs. Injections in past have been helpful [facility] Medical History Physical exam Pulmonary nodules Tobacco dependence Pneumonitis Cough Barretts esophagus Hiatal hernia with GERD without esophagitis GERD without esophagitis Personal history of nicotine dependence Ankle fracture Anxiety Depression Onychia of toe Radiculopathy Surgical History History of lumbar surgery History of hip surgery (~1997) History of esophagogastroduodenoscopy (EGD) (~04/2021) History of colonoscopy (~04/2021) History of ankle surgery (~01/2020) Family History Maternal Aunt Breast CA Father Myocardial infarction Mother History of quadruple bypass Myocardial infarction Social History Housing: House Patient Tobacco Use Status: Former Tobacco user Tobacco use type: Cigarette Years Smoked: 35 - onset 14yo, quit for 6 yrs - 1ppd x 35yrs - 35pyh e-Cigarette/Vaping Use: Currently Using Second Hand Smoke Exposure: Yes Current occupational status: employed Current occupation: [employer] Current occupational exposures/hazards: No Cognitive needs: No Hearing needs: No Vision needs: No Female Reproductive History Menstrual Age of Menarche: 12 Physical Exam Vital Signs: BMI result Body Mass Index 27.6 Extrem Other: No pain with ROM of the hip. Negative impingement. There is ttp over the greater trochanter right > left. No pain with hip flexion or abduction. Negative tenderness along the SI joint, Negative SLR. NVI. Office Procedures Joint Injection/Drain Joint Injection/Drain Details: Injected 1 mL of Decadron and 3 mL 1% lidocaine and 3 mL of 0.25% Marcaine. Site was prepped using aseptic technique. Patient tolerated the procedure well. Primary Site: other (right hip greater trochanter) Approach Used: posterolateral Coding - Large joint Procedure code (CPT) selection complete Quality Reporting (2019) Adult ([facility] ) Smoking risk assessment performed?: Yes Patient Tobacco Use Status: Former Tobacco user Assessment & Plan Assessment & Plan (1) Greater trochanteric bursitis of both hips: Code(s): M70.61 - Trochanteric bursitis, right hip; M70.62 - Trochanteric bursitis, left hip Category: Medical Plan: Injected right greater trochanter. Mechanics, strengthening and stretching discussed and demonstrated. Coding Level of Care Code Est Pt Level 3 (51042) Diagnoses Greater trochanteric bursitis of both hips M70.61; M70.62 CPT Codes Coding - Large joint: 62549 - Large joint ([id number])
[2024-03-11 13:02] VITALS: BMI 27.6
== END 2024-03-11 13:49 | disposition home or self-care (01) ==
PROVIDERS: PCP Nurse Practitioner Family; Visit Provider Orthopaedic Surgery
DX: M70.61 Trochanteric bursitis, right hip (principal); M70.62 Trochanteric bursitis, left hip
CPT/HCPCS: 20610; 99213

== ENCOUNTER → 2024-03-11 12:31 | Outpatient (BNVA) | payer OTHER, SELFPAY | PROVIDERS: PCP Nurse Practitioner Family; Visit Provider Orthopaedic Surgery | DX: M70.61 Trochanteric bursitis, right hip (principal); M70.62 Trochanteric bursitis, left hip | CPT/HCPCS: 20610; 99212; J0665; J1100 ==

== ENCOUNTER 2024-04-20 12:56 | Outpatient (AMB) | payer OTHER, SELFPAY ==
--- NOTE | 2024-04-20 12:58 | MHC.OFFVIS ---
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 Pt states bilateral calve and foot cramping, both are equal. States only when ambulating. States she has Hx of Left ankle surgery and has caused some pain. States that LE pain and cramping has been going on for years but worsened over the past year. 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 She has a history of smoking which she quit about a year ago but then transitioned to vaping. She has been a diabetic for about the last 2 years. Last reported hemoglobin A1c was actually 5.9. She reports that she has pain in her calves in general after walking about 15 minutes but she has more significant pain in her feet. She now presents to us for vascular evaluation. Of note noninvasive testing was obtained by the primary care team. [facility] Medical History Osteoarthritis of right knee Physical exam Pulmonary nodules Tobacco dependence Pneumonitis Cough Barretts esophagus Hiatal hernia with GERD without esophagitis GERD without esophagitis Personal history of nicotine dependence Ankle fracture Anxiety Depression Onychia of toe Radiculopathy Surgical History History of lumbar surgery History of hip surgery (~1997) History of esophagogastroduodenoscopy (EGD) (~04/2021) History of colonoscopy (~04/2021) History of ankle surgery (~01/2020) Family History Maternal Aunt Breast CA Father Myocardial infarction Mother History of quadruple bypass Myocardial infarction Social History Housing: House Patient Tobacco Use Status: Former Tobacco user Tobacco use type: Cigarette Years Smoked: 35 - onset 14yo, quit for 6 yrs - 1ppd x 35yrs - 35pyh e-Cigarette/Vaping Use: Currently Using Second Hand Smoke Exposure: Yes Current occupational status: employed Current occupation: [employer] WORK[employer] Current occupational exposures/hazards: No Cognitive needs: No Hearing needs: No Vision needs: No Female Reproductive History Menstrual Age of Menarche: 12 Review of Systems Const All systems reviewed & are unremarkable except as noted in HPI and below Reports no additional complaints ENT Reports Normal hearing present Card Denies chest pain, Denies chest pain at rest, Denies chest pain with activity and Denies pedal edema Resp Denies cough GI Denies abdominal pain Musc Denies abnormal gait, Denies muscle cramps and Denies radiating pain into limb Skin/Breast Denies skin ulcer and Denies wounds Neuro Reports Normal hearing present and Denies abnormal gait Psych Reports no additional complaints Physical Exam Vital Signs: BMI result Body Mass Index 27.6 Const General: cooperative, healthy appearing and comfortable Orientation/consciousness: oriented to person, oriented to place and oriented to time HEENT Head: Yes normal to inspection Neck Neck: Yes normal visual inspection Carotids: no bruits Chest Chest palpation & inspection: normal inspection of the chest Resp Effort & Inspection: normal respiratory effort and able to speak in complete sentences Auscultation: clear to auscultation bilaterally, no crackles, no rales, no rhonchi and no wheezes Cardio Other: Palpable DP bilaterally Rate: regular rate Rhythm: regular rhythm Heart sounds: S1 normal heart sound present and S2 normal heart sound present Bruits: no carotid bruits Peripheral pulses: Peripheral pulses 2+ throughout GI Inspection: Yes normal to inspection Skin Wounds: no wounds Hair: normal Neuro General: oriented to person, oriented to place and oriented to time Cranial nerves: Yes CN's II-XII intact bilaterally and Yes Normal hearing present Cognition (Neuro): normal cognition Motor exam (neuro): 5/5 motor strength present throughout Extrem Other: venous exam: No significant superficial varicosities or spider telangiectasias, minimal edema General: No clubbing, No cyanosis and No edema Psych Appearance: grossly normal Mental Status: mental status grossly normal Speech and movement: Normal speech and movement present Quality Reporting (2019) Adult ([facility] 138/10/23/68) Smoking risk assessment performed?: Yes Patient Tobacco Use Status: Former Tobacco user Results Reviewed Results Reviewed: Noninvasive testing dated 01/22/2024 demonstrates no significant arterial stenosis. This was by duplex only. No ABIs were performed. Written reports were reviewed. Assessment & Plan Assessment & Plan (1) Leg pain: Code(s): M79.606 - Pain in leg, unspecified Category: Medical Qualifiers: Laterality: bilateral Qualified Code(s): M79.604 - Pain in right leg; M79.605 - Pain in left leg Plan: In short patient has no evidence arterial disease by ultrasound and she does have palpable dorsalis pedis pulses bilaterally. I do believe some of her discomfort may be more neuropathic in nature due to her history of diabetes. In addition she complains of pain in her feet. She had diminished arches and pain on direct palpation. There may be an element of plantar fasciitis there as well. She would definitely benefit from a good podiatric evaluation and possible inserts. She will follow up with us on an as-needed basis. We did discuss routine risk factor modification including vaping cessation as well. Thank you for allowing us to participate in her care. Coding Level of Care Code New Pt Level 4 (54628) Diagnoses Pain in both lower extremities M79.604; M79.605 Laterality: bilateral
[2024-04-20 13:04] VITALS: BMI 27.6
== END 2024-04-20 13:29 | disposition home or self-care (01) ==
PROVIDERS: PCP Nurse Practitioner Family; Visit Provider Surgery Vascular Surgery
DX: M79.604 Pain in right leg (principal); M79.605 Pain in left leg
CPT/HCPCS: 99204

== ENCOUNTER → 2024-04-20 12:56 | Outpatient (BNVA) | payer OTHER, SELFPAY | PROVIDERS: PCP Nurse Practitioner Family; Visit Provider Surgery Vascular Surgery ==

== ENCOUNTER 2024-06-10 13:00 | Outpatient (AMB) | payer OTHER, SELFPAY ==
--- NOTE | 2024-06-10 13:17 | MHC.OFFVIS ---
Intake Visit Reasons: OV - Right Hip Bursitis - Last injected 03/11/24 Intake Note: Shannen is a 58 year old female who presents today for a follow up of her bilateral hip bursitis. Right hip bursa was las injected 03/11/24. Patient reports that the last injection was very helpful and she would like to repeat injection today. Allergies codeine [CODEINE] Allergy (Unknown, Verified 04/20/24 13:08) NAUSEA HPI HPI OV - Right Hip Bursitis - Last injected 03/11/24: Details: Shannen is a 58 year old female who presents today for a follow up of her bilateral hip bursitis. Right hip bursa was las injected 03/11/24. Patient reports that the last injection was very helpful and she would like to repeat injection today. [facility] Medical History Osteoarthritis of right knee Physical exam Pulmonary nodules Tobacco dependence Pneumonitis Cough Barretts esophagus Hiatal hernia with GERD without esophagitis GERD without esophagitis Personal history of nicotine dependence Ankle fracture Anxiety Depression Onychia of toe Radiculopathy Surgical History History of lumbar surgery History of hip surgery (~1997) History of esophagogastroduodenoscopy (EGD) (~04/2021) History of colonoscopy (~04/2021) History of ankle surgery (~01/2020) Family History Maternal Aunt Breast CA Father Myocardial infarction Mother History of quadruple bypass Myocardial infarction Social History Housing: House Patient Tobacco Use Status: Former Tobacco user Tobacco use type: Cigarette Years Smoked: 35 - onset 14yo, quit for 6 yrs - 1ppd x 35yrs - 35pyh e-Cigarette/Vaping Use: Currently Using Second Hand Smoke Exposure: Yes Current occupational status: employed 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 Site was prepped using aseptic technique. Patient tolerated the procedure well. Primary Site: other (Right greater trochanter) Approach Used: posterolateral Coding - Large joint Procedure code (CPT) selection complete Quality Reporting (2019) Adult ([facility] 13810/23/68) Smoking risk assessment performed?: Yes Patient Tobacco Use Status: Former Tobacco user Assessment & Plan Assessment & Plan (1) Greater trochanteric bursitis of both hips: Code(s): M70.61 - Trochanteric bursitis, right hip; M70.62 - Trochanteric bursitis, left hip Category: Medical Plan: I injected her right hip today. She can return in approximately 2 months for an injection of her left hip. She is diabetic and I warned her of the hyperglycemic effects of steroids. She states it last time her blood sugar did not change but that she is aware. (2) Diabetes: Code(s): E11.9 - Type 2 diabetes mellitus without complications Category: Medical Plan: Informed of the hyperglycemic effects of steroids. Coding Level of Care Code Est Pt Level 4 (28910) Diagnoses Greater trochanteric bursitis of both hips M70.61; M70.62 Diabetes E11.9 CPT Codes Coding - Large joint: 72651 - Large joint ([id number])
== END 2024-06-10 13:36 | disposition home or self-care (01) ==
PROVIDERS: PCP Nurse Practitioner Family; Visit Provider Orthopaedic Surgery
DX: M70.61 Trochanteric bursitis, right hip (principal); M70.62 Trochanteric bursitis, left hip; E11.9 Type 2 diabetes mellitus without complications
CPT/HCPCS: 20610; 99214

== ENCOUNTER → 2024-06-10 13:00 | Outpatient (BNVA) | payer OTHER, SELFPAY | PROVIDERS: PCP Nurse Practitioner Family; Visit Provider Orthopaedic Surgery | DX: M70.61 Trochanteric bursitis, right hip (principal); M70.62 Trochanteric bursitis, left hip; E11.9 Type 2 diabetes mellitus without complications | CPT/HCPCS: 20610; 99212; J0665; J1100; J2003 ==

== ENCOUNTER 2024-07-13 12:56 | Outpatient (REF) | payer OTHER, SELFPAY ==
[2024-07-13 16:06] LABS: MANUAL DIFF FLAG NO
[2024-07-13 16:26] LABS: Basophils Absolute Auto 0.1 X10*3/uL (0.0-0.2); Eosinophils Percent Auto 0.5 % (0-4); Hematocrit 35.4 % (37.0-47.0); Imm Gran Abs Auto 0.01 X10*3/uL (0.00-0.03); Imm Gran Pct Auto 0.2 % (0.0-0.4); Lymphocytes Absolute Auto 2.4 X10*3/uL (1.2-4.9); Lymphocytes Percent Auto 37.5 % (20-40); Mean Corpuscular HGB Conc 33.9 g/dl (31.0-35.0); Mean Corpuscular Hemoglobin 29.2 pg (27.0-33.0); Mean Corpuscular Volume 86.1 fL (80.0-98.0); Mean Platelet Volume 10.1 fL (9.4-12.3); Monocytes Absolute Auto 0.5 X10*3/uL (0.1-1.2); Monocytes Percent Auto 8.1 % (2-11); Neutrophils Absolute Auto 3.3 x10*3/uL (2.0-8.3); Neutrophils Percent Auto 52.7 % (45-73); Platelet Count 309 X10*3/uL (160-400); Red Blood Count 4.11 X10*6/uL (4.20-5.50); Red Cell Distribution Width 14.7 % (11.0-16.0); White Blood Count 6.3 X10*3/uL (4.8-10.8)
[2024-07-13 16:47] LABS: Alanine Aminotransferase 20 U/L (0-31); Albumin Level 4.2 g/dL (3.5-5.0); Alkaline Phosphatase 86 U/L (39-117); Anion Gap 12 (12-20); Aspartate Amino Transferase 26 U/L (5-31); Bilirubin Total 0.4 mg/dL (0.0-1.0); Blood Urea Nitrogen 13 mg/dL (9-16); Calcium 9.9 mg/dL (8.4-10.2); Carbon Dioxide 26 mmol/L (22-29); Chloride 102 mmol/L (96-108); Cholesterol 157 mg/dL (<200); Estimated Glomerular Filt Rate > 60; Gamma Glutamyl Transpeptidase 34 U/L (7-33); Glucose Fasting 87 mg/dL (60-99); HDL Cholesterol 45 mg/dL (>40); LDL Cholesterol Calculated 81 mg/dL (<100); Potassium 4.3 mmol/L (3.3-5.1); Sodium 136 mmol/L (135-145); Total Protein 6.8 g/dL (6.5-8.0); Triglycerides 157 mg/dL (<150)
[2024-07-13 16:49] LABS: Appearance Urine Clear; Color Urine Yellow; Glucose Urine UA Negative (Negative); Leukocyte Esterase Urine Negative (Negative); Nitrite Urine Negative (Negative); Specific Gravity - Urine 1.015 (1.005-1.025); Urine Blood Negative (Negative); Urine Ketones Negative (Negative); Urine Protein Negative (Neg-Trace)
[2024-07-13 16:52] LABS: TSH reflex Free T4 0.41 uIU/mL (0.32-4.0)
[2024-07-13 17:03] LABS: Creatinine Urine 69.48 mg/dL; Microalbumin Urine < 5.0 mg/L
[2024-07-15 05:14] LABS: Triiodothyronine T3 Free 2.7 pg/mL (2.3-4.2)
[2024-07-15 06:03] LABS: Thyroid Peroxidase Antibodies 1 IU/mL (<9)
[2024-07-18 13:40] LABS: Thyrotropin Receptor Antibody <1.00 IU/L (<=2.00)
[2024-07-18 20:54] LABS: Alk.Phos Iso. Macrohepatic 0 % (<=0); Alk.Phos Isoenzymes Bone 23 % (28-66); Alk.Phos Isoenzymes Intest 0 % (1-24); Alk.Phos Isoenzymes Liver 77 % (25-69); Alk.Phos Isoenzymes Placental 0 % (<=0); Alk.Phos Isoenzymes Total 79 U/L (37-153)
== END 2024-07-13 12:57 | disposition home or self-care (01) ==
LOC: HO.HMGCLDS 12:56
PROVIDERS: PCP Nurse Practitioner Family; Visit Provider Nurse Practitioner Family
DX: R63.5 Abnormal weight gain (principal); E11.9 Type 2 diabetes mellitus without complications; Z79.899 Other long term (current) drug therapy
CPT/HCPCS: 36415; 80053; 80061; 81003; 82043; 82570; 82977; 83036; 83520; 84080; 84443; 84481; 85025; 86376; 96127

== ENCOUNTER → 2024-07-13 12:56 | Outpatient (AMB) | payer OTHER, SELFPAY ==
--- NOTE | 2024-07-13 13:02 | A.OFFPC_ITS ---
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 She is currently on a statin and Mario. She does report having neuropathy to bilateral feet. She reports she will make her own eye exam appointment. Her A1c today was 6.1. She reports her sugars have been excellent at home. Patient further reports excessive weight gain. She was 162 back in September of 2023 and currently is at 170. I did reinforce importance of diet the patient, it did explain that some of the medications she is on can cause some weight gain. I also informed her that a thyroid issue may be playing a part in this as well. She was noted to have hyperthyroidism during the beginning of this year and was subsequently referred to endocrinology and more labs were ordered, these labs were not done. Patient reports she is fasting today and I will have her go next door for further lab work, and I will resubmit her endocrinology referral. [facility] Medical History Osteoarthritis of right knee Physical exam Pulmonary nodules Tobacco dependence Pneumonitis Cough Barretts esophagus Hiatal hernia with GERD without esophagitis GERD without esophagitis Personal history of nicotine dependence Ankle fracture Anxiety Depression Onychia of toe Radiculopathy Surgical History History of lumbar surgery History of hip surgery (~1997) History of esophagogastroduodenoscopy (EGD) (~04/2021) History of colonoscopy (~04/2021) History of ankle surgery (~01/2020) Family History Maternal Aunt Breast CA Father Myocardial infarction Mother History of quadruple bypass Myocardial infarction Social History Housing: House Patient Tobacco Use Status: Former Tobacco user Tobacco use type: Cigarette Years Smoked: 35 - onset 14yo, quit for 6 yrs - 1ppd x 35yrs - 35pyh e-Cigarette/Vaping Use: Currently Using Second Hand Smoke Exposure: Yes Current occupational status: employed 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 1. Little interest or pleasure in doing things: not at all 2. Feeling down, depressed, or hopeless: nearly every day 3. Trouble falling or staying asleep, or sleeping too much: not at all 4. Feeling tired or having little energy: nearly every day 5. Poor appetite or overeating: not at all 6. Feeling bad about yourself - or that you are a failure or have let yourself or your family down: not at all 7. Trouble concentrating on things, such as reading the newspaper or watching television: more than half the days 8. Moving or speaking so slowly that other people could have noticed. Or the opposite - being so fidgety or restless that you have been moving around a lot more than usual: nearly every day 9. Thoughts that you would be better off or of hurting yourself in some way: not at all Total score: 11 Depression Screening Interpretation: Positive (denies any si or hi) Depression Screening Follow-up: Existing condition and In treatment Depression Screening Done: Yes 02369 - PHQ-9 Billing: Yes Source: Developed by Drs. Yash Khoury, Isabel Hayden, Andrew Cisneros and colleagues, with an educational eri from [employer]. Thrive Questionnaire Date Thrive assessed: 07/13/24 I am a: Patient What is your living situation today?: I have a steady place to live Within the past 12 months, did the food you bought not last and you didn't have the money to get more?: Often true Within the past 12 months, did you worry whether your food would run out before you got money to buy more?: Often true Do you have trouble paying for medicines?: Yes Do you have trouble getting transportation to medical appointments?: Yes Do you have trouble paying your heating and electricity bill?: No Do you have trouble taking care of your child, family member or friend?: No Do you have trouble with day-to-day activities such as bathing, preparing meals, shopping, managing finances, etc.?: No Are you currently unemployed and looking for a job?: No Are you interested in more education?: No Please select the resources that you would like help with: Paying for medicine Currently or been in a relationship where the following occur: No concerns reported THRIVE Score: 3 AUDIT C Alcohol Use Questionnaire (AUDIT-C) 1. How often do you have a drink containing alcohol?: Never 3. How often do you have six or more drinks on one occasion?: Never Total Score: 0 Score Reviewed/Action Taken: Yes CIPRIANO-7 AMB Questionnaire CIPRIANO-7 Date CIPRIANO - 7 assessed: 10/01/23 Being so restless that it is hard to sit still: 0 = Not at all Source: Developed by Drs. Yash Khoury, Isabel Hayden, Andrew Cisneros and colleagues, with an educational eri from [employer]. Physical exam (Primary Care) Vital Signs: Last Vital Signs Pulse 87 07/13/24 13:12 BP 110/70 07/13/24 13:12 Pulse Ox 97 07/13/24 13:12 BMI result Body Mass Index 29.2 Tobacco/Smoking Status: Tobacco use Status Tobacco use date assessed 10/01/23 07/13/24 13:02 Patient Tobacco Use Status Former Tobacco user 07/13/24 13:02 Tobacco use type Cigarette 07/13/24 13:02 e-Cigarette/Vaping Use Currently Using 07/13/24 13:02 PHQ-9: PHQ-9 Score PHQ-9: Total score 11 07/13/24 13:55 Depression Screening Interpretation: Positive (denies any si or hi) Depression Screening Follow-up: Existing condition and In treatment Thrive Assessment: Date of Thrive Assessment Date Thrive assessed 07/13/24 07/13/24 13:13 Currently or been in a relationship where the following occur: No concerns reported Const General: cooperative Nutritional Appearance: obese Resp Effort & Inspection: normal respiratory effort Auscultation: clear to auscultation bilaterally Cardio Rate: regular rate Rhythm: regular rhythm Heart sounds: S1 normal heart sound present and S2 normal heart sound present Extrem Other: feet intact, no sensation with use of monofilament. Psych Appearance: grossly normal Mental Status: mental status grossly normal Speech and movement: Normal speech and movement present Attitude: cooperative Thought process: Normal thought process present Insight: Good insight present (Psych) Judgement: Good judgement present (Psych) Results AMB Hemoglobin A1c AMB Hemoglobin A1c 6.1 % Last Edit by Jeremy Mitchell CMA on 07/13/24 13: 34 Results Reviewed Results Reviewed: Laboratory Last Values Hgb A1c (Clinic) 6.1 % (4.0-6.0) H 07/13/24 13:32 Coding Level of Care Code Est Pt Level 3 (03212) Diagnoses Excessive weight gain R63.5 Diabetes E11.9 Additional Codes PHQ-9 - 31199 - PHQ-9 Billing: Yes ([id number]) Assessment & Plan Assessment & Plan (1) Excessive weight gain: Code(s): R63.5 - Abnormal weight gain Category: Medical Plan: Encouraged the patient to get labs drawn today. Encouraged patient to follow up with endo. The patient did report that she drinks up to 2 sodas a day, encouraged her to quit soda altogether and to really focus on her diet/portion sizes. (2) Diabetes: Code(s): E11.9 - Type 2 diabetes mellitus without complications Category: Medical Plan: Currently stable Orders: Orders AMB Hemoglobin A1c Today Z13.9 - Encounter for screening, unspecified TSH reflex Free T4 Today R63.5 - Abnormal weight gain UA CC w/rflx Micro + Cult Today R63.5 - Abnormal weight gain Microalbumin, Random (w Creat) Today E11.9 - Type 2 diabetes mellitus without complications Complete Blood Count Auto Diff Today R63.5 - Abnormal weight gain Comprehensive [place]. Panel Fast Today R63.5 - Abnormal weight gain Lipid Panel Today R63.5 - Abnormal weight gain Medications: Changed From rosuvastatin 20 mg PO DAILY 90 days 90 tabs 1RF To rosuvastatin 40 mg PO DAILY 90 tabs 1RF 90 days
[2024-07-13 13:12] VITALS: BP 110/70; PULSE 87; O2SAT 97; BMI 29.2
== END ==
PROVIDERS: PCP Nurse Practitioner Family; Visit Provider Nurse Practitioner Family
DX: R63.5 Abnormal weight gain (principal); E11.9 Type 2 diabetes mellitus without complications; Z13.9 Encounter for screening, unspecified

== ENCOUNTER 2024-08-04 09:56 | Outpatient (REF) | payer OTHER, SELFPAY | END 2024-08-04 09:57 | disposition home or self-care (01) | LOC: HO.US 09:56 | PROVIDERS: PCP Nurse Practitioner Family; Visit Provider Nurse Practitioner Family | DX: R74.8 Abnormal levels of other serum enzymes (principal) | CPT/HCPCS: 76705; 76981 ==

== ENCOUNTER 2024-08-10 11:27 | Outpatient (AMB) | payer OTHER, SELFPAY ==
--- NOTE | 2024-08-10 11:30 | A.OFFVIS_ITS ---
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 Complaining of few months' history of urine incontinence associated with difficulty initiating the stream no frequency , no dysuria Last Pap/HPV was negative in 04/20 Last Mammogram was BI-RADS 1 in 08/23 Last Colonoscopy was negative in 04/21, the recommendation was to repeat in 10 years [facility] Medical History Osteoarthritis of right knee Physical exam Pulmonary nodules Tobacco dependence Pneumonitis Cough Barretts esophagus Hiatal hernia with GERD without esophagitis GERD without esophagitis Personal history of nicotine dependence Ankle fracture Anxiety Depression Onychia of toe Radiculopathy Surgical History History of lumbar surgery History of hip surgery (~1997) History of esophagogastroduodenoscopy (EGD) (~04/2021) History of colonoscopy (~04/2021) History of ankle surgery (~01/2020) Family History Maternal Aunt Breast CA Father Myocardial infarction Mother History of quadruple bypass Myocardial infarction Social History Housing: House Patient Tobacco Use Status: Former Tobacco user Tobacco use type: Cigarette Years Smoked: 35 - onset 14yo, quit for 6 yrs - 1ppd x 35yrs - 35pyh e-Cigarette/Vaping Use: Currently Using Second Hand Smoke Exposure: Yes Current occupational status: employed 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 Current occupational exposures/hazards: No Cognitive needs: No Hearing needs: No Vision needs: No Female Reproductive History Menstrual Age of Menarche: 12 Total pregnancies: 3 Full term: 3 Date of last pap smear: 04/12/20 (negative pap smear, negative hpv ) Date of Mammogram: 08/26/23 (bi rad 1) Review of Systems Const All systems reviewed & are unremarkable except as noted in HPI and below Card Reports as per HPI Resp Reports as per HPI GI Reports as per HPI and Reports no additional complaints Reports as per HPI Physical Exam Const General: cooperative, healthy appearing and comfortable Chest Chest palpation & inspection: normal inspection of the chest and normal palpation of entire chest wall Breast/axilla inspection: normal inspection of the breasts and normal inspection of the axillae Breast/axilla palpation: normal palpation of the breasts, normal palpation of the axillae and no axillary lymphadenopathy Resp Effort & Inspection: normal respiratory effort Auscultation: clear to auscultation bilaterally Percussion: percussion normal Cardio Palpation: normal PMI Rate: regular rate Rhythm: regular rhythm Heart sounds: no murmurs and no rubs Peripheral pulses: Peripheral pulses 2+ throughout GI Inspection: Yes normal to inspection Palpation (GI): Soft to palpation, nontender, no guarding, not rigid and No hepatosplenomegaly present Percussion: Yes normal to percussion Auscultation: normal bowel sounds Rectal Exam - Female: deferred General: Yes bladder normal to palpation External Female Exam: No lesion Speculum Exam - Vagina: normal appearance of the vagina, normal palpation, normal vaginal discharge and not erythematous Speculum Exam - Cervix: normal appearance of the cervix and normal palpation Bimanual exam- vagina & uterus: normal bimanual exam, normal palpation, uterine size normal, bladder normal to palpation, consistency normal and normal palpation Bimanual Exam- Adnexa, other: normal adnexae, no masses and no tenderness Quality Reporting (2019) Adult ([facility] 138/10/23/68) Smoking risk assessment performed?: Yes Patient Tobacco Use Status: Former Tobacco user Assessment & Plan Assessment & Plan (1) Well woman exam: Code(s): Z01.419 - Encounter for gynecological examination (general) (routine) without abnormal findings Category: Medical Plan: Co testing done. Counseled the patient about the recommended dietary allowance of 1200 mg of Calcium & 600 IU of vitamin D. Mammogram scheduled on 08/27/2024. The patient was instructed to perform monthly self-breast exams and schedule annual exam in a year. All questions answered and the patient verbalized understanding. (2) Urine incontinence: Code(s): R32 - Unspecified urinary incontinence Category: Medical Plan: Discussed with the patient the different types of Urine incontinence, stress urinary incontinence, intrinsic sphincter deficiency, overactive bladder and its work up. We will refer to Urology. All questions answered, the patient verbalized understanding. Orders: Referrals Urology Referral R32 - Unspecified urinary incontinence Coding Level of Care Code Est Pt Prev Care 40-64y(61789) Diagnoses Well woman exam Z01.419 Urine incontinence R32
[2024-08-10 11:38] VITALS: BP 102/60; BMI 29.2
== END 2024-08-10 12:30 | disposition home or self-care (01) ==
PROVIDERS: PCP Nurse Practitioner Family; Visit Provider Obstetrics & Gynecology
DX: Z01.419 Encounter for gynecological examination (general) (routine) without abnormal findings (principal); R32 Unspecified urinary incontinence
CPT/HCPCS: 99396

== ENCOUNTER 2024-08-10 11:27 | Outpatient (REF) | payer OTHER, SELFPAY ==
[2024-08-11 11:26] LABS: HPV 16,18/45 See PAP report
== END 2024-08-10 11:28 | disposition home or self-care (01) ==
LOC: HO.LNP 11:27
PROVIDERS: PCP Nurse Practitioner Family; Visit Provider Obstetrics & Gynecology
DX: Z01.419 Encounter for gynecological examination (general) (routine) without abnormal findings (principal); R32 Unspecified urinary incontinence
CPT/HCPCS: 87624; 88175; 99396; 99459

== ENCOUNTER 2024-08-27 11:29 | Outpatient (REF) | payer OTHER, SELFPAY | END 2024-08-27 11:30 | disposition home or self-care (01) | LOC: HO.MAMMO 11:29 | PROVIDERS: PCP Nurse Practitioner Family; Visit Provider Nurse Practitioner Family | DX: Z13.89 Encounter for screening for other disorder (principal) ==

== ENCOUNTER 2024-09-13 13:54 | Outpatient (AMB) | payer OTHER, SELFPAY ==
--- NOTE | 2024-09-13 14:07 | A.OFFVIS_ITS ---
Intake Visit Reasons: Inj-Left Greater Trochanter Injection Intake Note: Shannen is a 59 year old female who presents today for a Left Greater Trochanter Injection. Right Greater Trochanter injected 06/10/2024, She was told to return in 2 months for the left due to Diabetes. She reports that her pain has moved up on the hip. Allergies codeine [CODEINE] Allergy (Unknown, Verified 08/10/24 11:39) NAUSEA HPI HPI Inj-Left Greater Trochanter Injection: Details: Shannen is a 59 year old female who presents today for a Left Greater Trochanter Injection. Right Greater Trochanter injected 06/10/2024, She was told to return in 2 months for the left due to Diabetes. She reports that her pain is over the left greater trochanter. Painful at night and when she rests on it and when she walks up and down stairs. [facility] Medical History Osteoarthritis of right knee Physical exam Pulmonary nodules Tobacco dependence Pneumonitis Cough Barretts esophagus Hiatal hernia with GERD without esophagitis GERD without esophagitis Personal history of nicotine dependence Ankle fracture Anxiety Depression Onychia of toe Radiculopathy Surgical History History of lumbar surgery History of hip surgery (~1997) History of esophagogastroduodenoscopy (EGD) (~04/2021) History of colonoscopy (~04/2021) History of ankle surgery (~01/2020) Family History Maternal Aunt Breast CA Father Myocardial infarction Mother History of quadruple bypass Myocardial infarction Social History Housing: House Patient Tobacco Use Status: Former Tobacco user Tobacco use type: Cigarette Years Smoked: 35 - onset 14yo, quit for 6 yrs - 1ppd x 35yrs - 35pyh e-Cigarette/Vaping Use: Currently Using Second Hand Smoke Exposure: Yes Current occupational status: employed 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 Office Procedures Joint Inj/Aspir; Non-Pain Clin Joint Injection/Drain Details: Injected 1 mL of Decadron and 3 mL 1% lidocaine and 3 mL of 0.25% Marcaine. Site was prepped using aseptic technique. Patient tolerated the procedure well. Shoulders, Hips, Knees, Hip Injection Large Joint : Left Hip (Greater trochanter) Coding Procedure code (CPT) selection complete Quality Reporting (2019) Adult ([facility] ) Smoking risk assessment performed?: Yes Patient Tobacco Use Status: Former Tobacco user Assessment & Plan Assessment & Plan (1) Greater trochanteric bursitis of both hips: Code(s): M70.61 - Trochanteric bursitis, right hip; M70.62 - Trochanteric bursitis, left hip Category: Medical Plan: Injected left greater trochanter. Discussed the hyperglycemic effects of steroids. Can follow up in 3 months for injection of both greater trochanters if she like. (2) Diabetes: Code(s): E11.9 - Type 2 diabetes mellitus without complications Category: Medical Plan: Informed of the hyperglycemic effects of steroids. Coding Level of Care Code Est Pt Level 4 (88793) Diagnoses Greater trochanteric bursitis of both hips M70.61; M70.62 Diabetes E11.9 CPT Codes Shoulders, Hips, Knees, - Hip Injection Large Joint : Left Hip ([id number])
== END 2024-09-13 14:32 | disposition home or self-care (01) ==
PROVIDERS: PCP Nurse Practitioner Family; Visit Provider Orthopaedic Surgery
DX: M70.61 Trochanteric bursitis, right hip (principal); M70.62 Trochanteric bursitis, left hip; E11.9 Type 2 diabetes mellitus without complications
CPT/HCPCS: 20610; 99214

== ENCOUNTER → 2024-09-13 13:54 | Outpatient (BNVA) | payer OTHER, SELFPAY | PROVIDERS: PCP Nurse Practitioner Family; Visit Provider Orthopaedic Surgery | DX: M70.62 Trochanteric bursitis, left hip (principal); M70.61 Trochanteric bursitis, right hip; E11.9 Type 2 diabetes mellitus without complications | CPT/HCPCS: 20610; J0665; J1100; J2003 ==

== ENCOUNTER 2024-10-11 11:17 | Outpatient (REF) | payer OTHER, SELFPAY ==
--- NOTE | ~2024-10-11 | US_ITS ---
EXAMINATION: MM DIAGNOSTIC DIGITAL BREAST TOMOSYNTHESIS, BILATERAL Lateral Limited ultrasound. CLINICAL INFORMATION: Bilateral palpable lumps and pain in the lower axillary region. COMPARISON: Mammography: Comparison is made with relevant prior exams. TECHNIQUE: Digital breast mammography with tomosynthesis is performed in both the craniocaudal and mediolateral oblique views along with computer-aided detection (CAD). Bilateral Limited ultrasound. FINDINGS: There are scattered areas of fibroglandular density (ACR BI-RADS breast composition Category b). There are no significant masses, abnormal calcifications, or other abnormalities. Targeted color Doppler ultrasound scanning in the area the patient's bilateral palpable lumps and pain in the bilateral low axillary regions demonstrates normal axillary and breast tissue. There is no sonographic abnormality. Results are provided to the patient at time of visit by the technologist. US/US breast BI limited mamm only IMPRESSION: No mammographic or sonographic abnormality bilaterally to explain the patient's bilateral palpable lumps and pain. Recommend clinical evaluation and follow-up. Recommend routine annual screening mammography. ASSESSMENT: BI-RADS BI-RADS 1 - Negative RECOMMENDATION: 1 year F/U This patient's information was entered into a reminder system with a target due date for their next mammogram. Electronically signed by: Renetta Lenz DO 10/11/2024 12:30 PM JUAN
--- OUTSIDE RECORDS SUMMARY | 2024-10-11 12:34 | XMS_ITS | Patient Health Record ---
Author Organization [facility] Address [address] [place] [address] Care Team Providers Care Home Care And Home Health Aides Teacher Name Role Phone LASHAE GONSALVES Primary Care Provider Yash Suazo [phone] ALLERGIES Allergen (clinical drug ingredient) Drug/Non Drug Allergy documented on EMR Reaction Allergy Type Onset Date Status codeine Codeine Sulfate Unknown Drug Allergy A ctive REASON FOR REFERRAL No Information MEDICATIONS Medication SIG (Take, Route, Frequency, Duration) Notes Start Date End Date Status traZODone HCl 100 MG 1 tablet at bedtime Orally Once a day Active Omeprazole 20 MG 1 Orally BID for 30 day(s) 02/17/2020 Active Gabapentin 400 MG Oral for 30 Active Diclofenac Potassium 50 MG Oral for 90 Active tiZANidine HCl 4 MG Oral for 90 Active Venlafaxine HCl ER 150 MG Oral for 90 Active Lisinopril 5 MG Oral for 90 Ac tive clonazePAM 0.5 MG BID Orally Once a day Active IMMUNIZATIONS Vaccine Route Administration Date Status Comme nts Influenza Unknown 06/15/2019 Administered Influenza Unknown 03/01/2020 Administered SOCIAL HISTORY Tobacco Use: Social History Observation Description Date Details (start date - stop date) Current Smoker NA - NA Sex Assigned At : Social History Observation Description Sex Assigned At Unknown Tobacco Use/Smoking Question Answer Notes Patient is a current smoker How often do you smoke cigarettes? every day How many cigarettes a day do you smoke? 11-20 How soon after you wake up do you smoke your fir st cigarette? 6-30 minutes Are you interested in quitting? Not ready to ewelina t Alcohol Screen Question Answer Notes Did you have a drink contain ing alcohol in the past year? Yes How often did you have a dri nk containing alcohol in the past year? 2 to 4 times a month (2 points) How many drinks did you have on a typical day when you were drinking in the past year? 3 or 4 drinks (1 point) How often did you have 6 or more drinks on one occasion in the past year? Never (0 point) Points 3 Interpretation Positive PROBLEMS Problem Type ICD Code Onset Dates Problem Status W/U Status Risk SNOMED Code Notes Problem Diarrhea, unspecified type (R19.7) Active confirmed 87681613 Problem Gastroesophageal reflux disease, esophagitis presence not specified (K21.9) Active confirmed 914621662 Problem Nausea (R11.0) Active confirmed 7442086 07 Problem Weight loss (R63.4) Active confirmed 89 010595 Problem Gastroesophageal reflux disease without esophagitis (K21.9) Active confirmed 366498663 Problem Barretts esophagus without dysplasia (K22.70) Active confirmed 198033399 Problem Abdominal discomfort, epigastric (R10.13) Active confirmed 281085978 Problem Manzo''s esophagus without dysplasia (K22.70) Active confirmed 350687583 Problem Manzo's esophagus without dysplasia (K22.70) Active confirmed 995713379 Problem Rectal bleed (K62.5) Active confirmed 97819522 Problem Diverticular disease of colon (K57.30) Active confirmed Diverticular disease of colon (276527949) Problem Manzo esophagus (K22.70) Active confirmed Manzo esophagus (764214438) Problem Esophageal reflux (K21.9) Active confirmed Esophageal reflux (114301245) PLAN OF TREATMENT Pending Test Test Name Order Date LIVER PROFILE 11/11/2018 LIPASE 11/11/2018 CBC with MANUAL DIFFERENTIAL 11/11/2018 STOOL WBC 11/11/2018 Pathology 04/20/2021 Future Test Test Name Order Date UPPER GI ENDOSCOPY 02/13/2018 COLONOSCOPY 02/13/2018 UPPER GI ENDOSCOPY 03/20/2021 COLONOSCOPY 03/20/2021 Insurance Providers Payer Name Payer Address Payer Phone Subscriber Number Group Number Insured Name Patient Relationship to Insured Coverage Start Date Coverage End Date [facility] [address] [address] [place], [place] [id number] ROMERO PEÑA Self - patient is the insured MEDICAL (GENERAL) HISTORY Medical History History ICD Code Denies [place],DM,CVA,Lung disease,renal dise ase Anxiety/Depression GERD-EGD 01/2018--small to mo d-sized HH, small area of Manzo's without dysplasia, normal duodenal and gastric biopsies--no H.pylori Colonoscopy 01/2018---WNL--normal colon b iopsies--occ. diverticulosis Neg. abdominal U/S in 10/[address] scan of the abdomen in October of 2019 Hypertension Surgical History Surgery Date(Month/Year) Broken femur--left--hardware was removed 1997 Eye surgery Left ankle reconstruction 2019
== END 2024-10-11 11:18 | disposition home or self-care (01) ==
LOC: HO.MAMMO 11:17
PROVIDERS: PCP Nurse Practitioner Family; Visit Provider Nurse Practitioner Family
DX: N63.31 Unspecified lump in axillary tail of the right breast (principal); N64.4 Mastodynia
CPT/HCPCS: 76642; 77062; 77066

== ENCOUNTER → 2024-10-11 11:30 | Outpatient (BNV) | payer OTHER, SELFPAY | PROVIDERS: PCP Nurse Practitioner Family; Visit Provider Internal Medicine | DX: N63.31 Unspecified lump in axillary tail of the right breast (principal); N63.32 Unspecified lump in axillary tail of the left breast | CPT/HCPCS: 76642; 77062; 77066 ==

== ENCOUNTER 2024-12-13 10:50 | Outpatient (AMB) | payer OTHER, SELFPAY ==
--- NOTE | 2024-12-13 11:11 | A.OFFVIS_ITS ---
Vital Signs 12/13/24 11:12 Height 5 ft 4 in Weight 170 lb BMI 29.2 Intake Visit Reasons: Inj-LT Greater Trochanter last inj: 09/13/24 Intake Note: Shannen is a 59 year old female who presents today for an Left Greater Troch Injection. Patient reports that she would like to repeat injection today Allergies codeine [CODEINE] Allergy (Unknown, Verified 08/10/24 11:39) NAUSEA HPI HPI Inj-LT Greater Trochanter last inj: 09/13/24: Details: Shannen comes in today for a left hip pain complaint. I have seen her in the past and she has posttraumatic changes of her greater trochanter with resultant abductor tendonitis/greater trochanteric bursitis. She benefits from injections. [facility] Medical History Diabetes (~2021) Pulmonary nodules Pneumonitis Cough Nicotine dependence, cigarettes, uncomplicated Barretts esophagus Hiatal hernia with GERD without esophagitis GERD without esophagitis Anxiety Depression Radiculopathy Osteoarthritis of right knee Ankle fracture Surgical History History of lumbar surgery History of hip surgery (~1997) History of esophagogastroduodenoscopy (EGD) (~04/2021) History of colonoscopy (~04/2021) History of ankle surgery (~01/2020) Family History Maternal Aunt Breast CA Father Myocardial infarction Mother History of quadruple bypass Myocardial infarction Social History Housing: House Patient Tobacco Use Status: Former Tobacco user Tobacco use type: Cigarette Years Smoked: 36 - onset 14yo, quit for 6 yrs - 1ppd x 35yrs - 35pyh e-Cigarette/Vaping Use: Currently Using Second Hand Smoke Exposure: Yes Current occupational status: employed 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 Office Procedures Joint Inj/Aspir; Non-Pain Clin Joint Injection/Drain Details: Injected 1 mL of Decadron and 3 mL 1% lidocaine and 3 mL of 0.25% Marcaine. Site was prepped using aseptic technique. Patient tolerated the procedure well. Shoulders, Hips, Knees, Hip Injection Large Joint : Left Hip Coding Procedure code (CPT) selection complete Assessment & Plan Assessment & Plan (1) Greater trochanteric bursitis of left hip: Code(s): M70.62 - Trochanteric bursitis, left hip Category: Medical Plan: Left hip greater trochanteric bursitis. She had a IM nail in his hip many years ago which was subsequently removed but does have some posttraumatic enthesophytes which likely are contributing. She seems to benefit from injections. She is diabetic and I informed her of the hyperglycemic effects of steroids. (2) Diabetes: Onset Date: ~2021 Code(s): E11.9 - Type 2 diabetes mellitus without complications Category: Medical Plan: Hyperglycemic effects of steroids explained. Coding Level of Care Code Est Pt Level 4 (97252) Diagnoses Greater trochanteric bursitis of left hip M70.62 Diabetes E11.9 CPT Codes Shoulders, Hips, Knees, - Hip Injection Large Joint : Left Hip ([id number])
[2024-12-13 11:12] VITALS: BMI 29.2
--- OUTSIDE RECORDS SUMMARY | 2024-12-13 12:41 | XMS_ITS | Patient Health Record ---
Author Organization [facility] Address [address] [place] [address] Care Team Providers Care Police Dispatcher Name Role Phone LASHAE GONSALVES Primary Care Provider Yash Suazo [phone] Allergies Allergen (clinical drug ingredient) Drug/Non Drug Allergy documented on EMR Reaction Allergy Type Onset Date Status codeine Codeine Sulfate Unknown Drug Allergy A ctive Reason For Referral No Information Medications Medication SIG (Take, Route, Frequency, Duration) Notes [...] MG BID Orally Once a day Active Immunizations Vaccine Route Administration Date Status Comme nts Influenza Unknown 06/15/2019 Administered Influenza Unknown 03/01/2020 Administered Social History Tobacco Use: Social History Observation Description Date Details (start date - stop date) Current Smoker NA - NA Tobacco Use/Smoking Question Answer Notes Patient is [...] Never (0 point) Points 3 Interpretation Positive Section Notes: Smoker 1/2 ppd; no sig alcoh ol Smoker 1/2 ppd; no sig alcoh ol Smoker 1/2 ppd; no sig alcoh ol Smoker 1/2 ppd; no sig alcoh ol Smoker 1/2 ppd; no sig alcoh ol Problems Problem Type SNOMED Code ICD Code Onset Dates Problem Status W/U Status Risk Notes Problem Esophageal reflux (448799879) Esophageal reflux (K21.9) Active confirmed Problem 99665497 Weight loss (R63.4) Active confirmed Problem 026417470 Manzo's esopha zuleika without dysplasia (K22.70) Active confirmed Problem 882968870 Nausea (R11.0) Active confirmed Problem 184217614 Gastroesophageal reflux disease without esophagitis (K21.9) Active confirmed Problem 768846175 Barretts esophag us without dysplasia (K22.70) Active confirmed Problem 263160334 Gastroesophageal reflux disease, esophagitis presence not specified (K21.9) Active confirmed Problem 38617352 Rectal bleed (K62.5) Active confirmed Problem Manzo esophagus (275217746) Manzo esophagus (K22.70) Active confirmed Problem 45885702 Diarrhea, unspecified type (R19.7) Active confirmed Problem Diverticular disease of colon (054529516) Diverticular disease of colon (K57.30) Active confirmed Problem 214903287 Abdominal discomfort, epigastric (R10.13) Active confirmed Problem 347017769 Manzo''s esophagus without dysplasia (K22.70) Active confirmed Plan Of Treatment Pending Test Test Name Order Date LIVER PROFILE 11/11/2018 LIPASE 11/11/2018 CBC with MANUAL DIFFERENTIAL 11/11/2018 STOOL WBC 11/11/2018 Pathology 04/20/2021 Future Test Test Name Order Date UPPER GI ENDOSCOPY 02/13/2018 COLONOSCOPY 02/13/2018 UPPER GI ENDOSCOPY 03/20/2021 COLONOSCOPY 03/20/2021 Insurance Providers Payer Name Payer Address Payer Phone Subscriber Number Group Number Insured Name Patient Relationship to Insured Coverage Start Date Coverage End Date [facility] [address] [address] [place], [place] [id number] [phone] [id number] ROMERO PEÑA Self - patient is the insured Medical (General) History Medical History History ICD Code Denies [place],DM,CVA,Lung disease,renal dise ase Anxiety/Depression GERD-EGD 01/2018--small to [...]
== END 2024-12-13 11:36 | disposition home or self-care (01) ==
LOC: HO.HOS 10:50
PROVIDERS: PCP Nurse Practitioner Family; Visit Provider Orthopaedic Surgery
DX: M70.62 Trochanteric bursitis, left hip (principal); E11.9 Type 2 diabetes mellitus without complications
CPT/HCPCS: 20610; 99214

== ENCOUNTER → 2024-12-13 10:50 | Outpatient (BNVA) | payer OTHER, SELFPAY | PROVIDERS: PCP Nurse Practitioner Family; Visit Provider Orthopaedic Surgery | DX: M70.62 Trochanteric bursitis, left hip (principal); E11.9 Type 2 diabetes mellitus without complications | CPT/HCPCS: 20610; J0665; J1100; J2003 ==

== ENCOUNTER → 2025-01-12 07:07 | Outpatient (BNVA) | payer OTHER, SELFPAY | PROVIDERS: PCP Nurse Practitioner Family; Visit Provider Nurse Practitioner Family | DX: Z13.89 Encounter for screening for other disorder (principal) ==

== ENCOUNTER 2025-05-16 10:48 | Outpatient (AMB) | payer OTHER, SELFPAY ==
--- NOTE | 2025-05-16 11:28 | A.OFFVIS_ITS ---
Intake Visit Reasons: OV-Rt hip Trochanteric bursitis last inj06/10/24 Intake Note: Shannen is a 59 year old female who presents today for a follow up of her Right Trochanteric bursitis, Last injection administered 06/10/24. She reports great releif and would like to have injection repeated today. Allergies codeine (CODEINE) Allergy (Unknown, Verified 08/10/24 11:39) NAUSEA HPI HPI OV-Rt hip Trochanteric bursitis last inj06/10/24: Details: Shannen is a 59 year old female who presents today for a follow up of her Right Trochanteric bursitis, Last injection administered 06/10/24. She reports great relief and would like to have injection repeated today. She describes pain with sleeping and stairs. [facility] Medical History Diabetes (~2021) Pulmonary nodules Pneumonitis Cough Nicotine dependence, cigarettes, uncomplicated Barretts esophagus Hiatal hernia with GERD without esophagitis GERD without esophagitis Anxiety Depression Radiculopathy Osteoarthritis of right knee Ankle fracture Surgical History History of lumbar surgery History of hip surgery (~1997) History of esophagogastroduodenoscopy (EGD) (~04/2021) History of colonoscopy (~04/2021) History of ankle surgery (~01/2020) Family History Maternal Aunt Breast CA Father Myocardial infarction Mother History of quadruple bypass Myocardial infarction Social History Housing: House Patient Tobacco Use Status: Former Tobacco user Tobacco use type: Cigarette Years Smoked: 36 - onset 14yo, quit for 6 yrs - 1ppd x 36yrs - 35pyh e-Cigarette/Vaping Use: Currently Using Second Hand Smoke Exposure: Yes Current occupational status: employed 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 No groin pain with ROM Office Procedures Joint Inj/Aspir; Non-Pain Clin Joint Injection/Drain Details: Injected 1 mL of Decadron and 3 mL 1% lidocaine and 3 mL of 0.25% Marcaine. Site was prepped using aseptic technique. Patient tolerated the procedure well. Shoulders, Hips, Knees, Hip Injection Large Joint : Left Hip (Greater trochanter) Coding Procedure code (CPT) selection complete Assessment & Plan Assessment & Plan (1) Greater trochanteric bursitis of left hip: Code(s): M70.62 - Trochanteric bursitis, left hip Category: Medical Plan: Injected left greater trochanteric bursa. Continue activity as tolerated. Coding Level of Care Code Est Pt Level 3 (43929) Diagnoses Greater trochanteric bursitis of left hip M70.62 CPT Codes Shoulders, Hips, Knees, - Hip Injection Large Joint : Left Hip ([id number])
--- OUTSIDE RECORDS SUMMARY | 2025-05-16 14:15 | XMS_ITS | Patient Health Record ---
Author Organization [facility] Address [address] [place] [address] Care Team Providers Care Bunghole Borer Name Role Phone LASHAE GONSALVES Primary Care Provider Yash Suazo [phone] Allergies Allergen (clinical drug ingredient) Drug/Non Drug [...] W/U Status Risk Notes Problem Esophageal reflux (147394690) Esophageal reflux (K21.9) Active confirmed Problem 46716473 Weight loss (R63.4) Active confirmed Problem 614251381 Manzo's esopha zuleika without dysplasia (K22.70) Active confirmed Problem 725852660 Nausea (R11.0) Active confirmed Problem 353187225 Gastroesophageal reflux disease without esophagitis (K21.9) Active confirmed Problem 825454831 Barretts esophag us without dysplasia (K22.70) Active confirmed Problem 279713019 Gastroesophageal reflux disease, esophagitis presence not specified (K21.9) Active confirmed Problem 14667908 Rectal bleed (K62.5) Active confirmed Problem Manzo esophagus (059661689) Manzo esophagus (K22.70) Active confirmed Problem 64171788 Diarrhea, unspecified type (R19.7) Active confirmed Problem Diverticular disease of colon (247802933) Diverticular disease of colon (K57.30) Active confirmed Problem 247777991 Abdominal discomfort, epigastric (R10.13) Active confirmed Problem 878808363 Manzo''s esophagus without dysplasia (K22.70) Active confirmed [...] Insured Coverage Start Date Coverage End Date [facility] [address] [address] [place], [place] [id number] [phone] [id number] ROMERO PEÑA Self - patient is the insured Medical (General) History Medical History History ICD Code Denies [place],DM,CVA,Lung disease,renal dise ase Anxiety/Depression GERD-EGD 01/2018--small to [...]
== END 2025-05-16 11:57 | disposition home or self-care (01) ==
LOC: HO.HOS 10:49
PROVIDERS: PCP Nurse Practitioner Family; Visit Provider Orthopaedic Surgery
DX: M70.62 Trochanteric bursitis, left hip (principal)
CPT/HCPCS: 20610; 99213

== ENCOUNTER → 2025-05-16 10:48 | Outpatient (BNVA) | payer OTHER, SELFPAY | PROVIDERS: PCP Nurse Practitioner Family; Visit Provider Orthopaedic Surgery | DX: M70.62 Trochanteric bursitis, left hip (principal); M25.552 Pain in left hip | CPT/HCPCS: 20610; J0665; J1100; J2003 ==